=== PATIENT | male | born 1995 | race Caucasian/White ===

== ENCOUNTER 2017-09-06 06:57 | Inpatient (IN) | payer BC, SELFPAY ==
[2017-09-06] VITALS (18 sets, daily range): BP systolic 122–153; BP diastolic 67–87; PULSE 50–91; RESP 16–20; TEMP 36.3–37.4; O2SAT 91–99; BMI 25.5; BMI 26.2
[2017-09-06] MEDS: Ondansetron 4 MG/2 ML Vial IV (07:31)
[2017-09-06] MEDS: 0.9% Normal Saline 1,000 ML 1000 ML IV (07:31)
--- NOTE | 2017-09-06 07:40 | ED.VISSUMM ---
- ER Visit Summary Date of Service: 09/06/17 Chief Complaint: Vomiting diarrhea History of Present Illness: The patient is a 22 M who states on Tuesday morning, while returning from a [email or web address] cruise, he developed abdominal pain in the epigastric region radiating to his back. The patient states he did a significant amount of alcoholic beverage ingestion while on the cruise. He developed diarrhea that resolved yesterday with the use of antidiarrheal medication. Beginning last night he had vomiting. He states that he has had pancreatitis in the past that was attributed to gallbladder disease. He denies any fevers. Denies any rashes. His significant other who is on the trip with him does not feel ill. Physical Examination: Afebrile vital signs are stable Gen: Well-nourished well-developed Head: Normocephalic atraumatic Eyes: Perrl EOMI ENT: TMs clear no rhinorrhea moist mucous membranes Neck: Supple no lymphadenopathy no JVD nontender CVS: Regular rate rhythm no murmurs normal S1-S2 Respiratory: No distress clear to auscultation bilaterally chest nontender Abdomen: Soft mild tenderness to palpation in the epigastric region nondistended normal bowel sounds no masses Back: Nontender Extremity: Nontender no edema Skin: Normal color no rash Neuro: alert orientated ?3 CN II-XII intact normal strength sensation reflexes gait cerebellar Psych: Normal affect normal mood Test Results: White count at 7.9 hemoglobin 14.5 with platelets of 178. Glucose of 136. Liver enzymes showed an ALT is 79 and lipase of 4432. CT the abdomen pelvis demonstrated acute pancreatitis with significant inflammatory changes. See radiologist's formal reading for details. Emergency Department Course and Treatment: Patient received IV fluids Zofran and morphine. Patient is improved. Our plan will be admission into the hospital. Impression: 1. Acute pancreatitis This note was generated with [employer] dictation software. It may contain incorrect words, spelling, and punctuation that were not noted in review of the chart prior to signing ED Disposition - Plan for ED Patient: Chief Complaint: Nausea/Vomiting/Diarrhea Referrals: Care Physician,No Primary [Primary Care Provider] -
--- NOTE | 2017-09-06 07:46 | ED.DCSUM_ITS ---
- ER Visit Summary Date of Service: 09/06/17 Chief Complaint: Vomiting diarrhea History of Present Illness: The patient is a 22 M who states on Tuesday morning, while returning from a [employer] cruise, he developed abdominal pain in the epigastric region radiating to his back. The patient states he did a significant amount of alcoholic beverage ingestion while on the cruise. He developed diarrhea that resolved yesterday with the use of antidiarrheal medication. Beginning last night he had vomiting. He states that he has had pancreatitis in the past that was attributed to gallbladder disease. He denies any fevers. Denies any rashes. His significant other who is on the trip with him does not feel ill. Physical Examination: Afebrile vital signs are stable Gen: Well-nourished well-developed Head: Normocephalic atraumatic Eyes: Perrl EOMI ENT: TMs clear no rhinorrhea moist mucous membranes Neck: Supple no lymphadenopathy no JVD nontender CVS: Regular rate rhythm no murmurs normal S1-S2 Respiratory: No distress clear to auscultation bilaterally chest nontender Abdomen: Soft mild tenderness to palpation in the epigastric region nondistended normal bowel sounds no masses Back: Nontender Extremity: Nontender no edema Skin: Normal color no rash Neuro: alert orientated ?3 CN II-XII intact normal strength sensation reflexes gait cerebellar Psych: Normal affect normal mood Test Results: White count at 7.9 hemoglobin 14.5 with platelets of 178. Glucose of 136. Liver enzymes showed an ALT is 79 and lipase of 4432. CT the abdomen pelvis demonstrated acute pancreatitis with significant inflammatory changes. See radiologist's formal reading for details. Emergency Department Course and Treatment: Patient received IV fluids Zofran and morphine. Patient is improved. Our plan will be admission into the hospital. Impression: 1. Acute pancreatitis This note was generated with [employer] dictation software. It may contain incorrect words, spelling, and punctuation that were not noted in review of the chart prior to signing ED Disposition - Plan for ED Patient: Chief Complaint: Nausea/Vomiting/Diarrhea Referrals: Care Physician,No Primary [Primary Care Provider] -
[2017-09-06 07:57] LABS: Absolute Lymphocyte Count 0.75 X10^3/ul (0.83-4.51); Absolute Neutrophil Count 6.4 X10^3/uL (2.0-7.7); Basophil# 0.01 X10^3/uL; Basophil% 0.1 % (0-1); Eosinophil# 0.04 X10^3/uL; Eosinophils% 0.5 % (0-5); Hematocrit 41.9 % (40-54); Hemoglobin 14.5 g/dl (13.0-16.5); Lymphocyte # 0.75 X10^3/ul (4.0); Lymphocyte % 9.5 % (19-41); Mean Corp Hgb Conc 34.6 g/gl (32-36); Mean Corpuscular Hgb 30.1 pg (27.0-32.0); Mean Corpuscular Volume 87.1 fL (80-94); Mean Platelet Vol. 10.8 fl (6.2-12.0); Monocyte# 0.73 X10^3/uL; Monocyte% 9.2 % (0-10); Neutrophil # 6.38 X10^3/uL (2.7-7.7); Neutrophil % 80.4 % (47-70); POSITIVE COUNT NO; POSITIVE DIFFERENTIAL NO; POSITIVE MORPHOLOGY NO; Platelet Count 178 K/mm3 (150-450); RBC Distribution Width CV 12.5 % (11.6-14.6); RBC Distribution Width SD 39.1 fl (35.1-43.9); Red Blood Count 4.81 M/mm3 (4.6-6.2); White Blood Count 7.9 K/mm3 (4.4-11.0)
[2017-09-06 08:08] LABS: ALB/GLOB Ratio 1.1 RATIO (0.9-2.4); AST(SGOT) 33 U/L (15-37); Alanine Aminotransfer ALT/SGPT 79 U/L (16-61); Albumin, Serum 3.9 g/dL (3.2-5.0); Alkaline Phosphatase 74 U/L (45-117); Anion Gap 9 (5-15); BUN 15 mg/dL (7-18); Calcium,Total 8.8 mg/dL (8.5-10.1); Chloride 105 mmol/L (98-107); EST Glomerular Filtration Rate 99 mL/min (>60); Est Glom Filt Rate - Afr Amer 119 mL/min (>60); Globulin 3.6 g/dL (2.2-4.2); Glucose 136 mg/dL (74-106); Lipase 4432 U/L (73-393); Potassium 3.7 mmol/L (3.5-5.1); Protein, Total 7.5 g/dL (6.4-8.2); Sodium Level 140 mmol/L (136-145)
--- NOTE | 2017-09-06 08:13 | CT_ITS ---
STUDY: CT ABDOMEN AND PELVIS WITH CONTRAST REASON FOR EXAM: Male, 22 years old. Epigastric pain with nausea and vomiting. History of pancreatitis. RADIATION DOSAGE (If Supplied By Facility): CTDIvol = ( 14.58 ) mGy, DLP = ( 988.4 ) mGycm TECHNIQUE: Transaxial images were obtained from the dome of the diaphragm to the symphysis pubis without oral contrast. 100 ml of Isovue 300 contrast was administered. Sagittal and coronal images were reconstructed. Individualized dose optimization techniques were used for this CT. COMPARISON: None. FINDINGS: Tiny left pleural effusion. The visualized portions of the heart are within normal limits. Normal liver. The patient is status post cholecystectomy. Normal spleen. Small amount of perisplenic fluid. There is diffuse enlargement of the pancreas with liliane-pancreatic edema suggesting acute pancreatitis. Small amount of fluid and inflammatory changes are seen in the peripancreatic region extending into the left anterior pararenal space and left paracolic gutter. Small amount of fluid is also seen in the anterior right pararenal space. Normal bilateral adrenal glands. Normal right kidney. Normal left kidney. There is a small hiatal hernia. Normal small intestine. There are scattered colonic diverticula consistent with diverticulosis. The appendix is visualized and appears normal. Normal abdominal aorta. Normal inferior vena cava. Normal retroperitoneum. Normal urinary bladder. Normal abdominal wall. Straightening of the normal lumbar lordosis. CT/Abdomen/Pelvis W IV Cont ONLY IMPRESSION: Findings in comparison with acute pancreatitis with peripancreatic inflammatory changes as well as bilateral perinephric stranding and inflammatory changes in the pararenal spaces bilaterally. Minimal left pleural effusion. Electronically Signed: Que Yoo MD at 8:58 EDT Tel [phone], Service support ,
[2017-09-06] MEDS: 0.9% Normal Saline 1,000 ML 999 ML IV (08:18)
[2017-09-06] MEDS: Morphine 4 MG/ML Syringe IV ×2 (08:19→09:22)
[2017-09-06 09:04] LABS: Lactic Acid 0.9 mmol/L (0.4-2.0)
[2017-09-06] MEDS: 0.9% Normal Saline 1,000 ML 200 ML IV ×3 (09:22→19:05)
[2017-09-06 09:35] LABS: Bacteria 0 SEEN /hpf (None Seen); Mucous, Urine 0 SEEN /hpf (<or=2+); Squamous Epithelial Cells - UA 0 SEEN /hpf (0-5); White Blood Cells 0 SEEN /hpf (0-5)
[2017-09-06 09:37] LABS: Color, Urine Yellow (Yellow); Glucose, Dipstick Normal (Normal); Ketone-Dipstick Negative (Negative); Leukocyte Esterase-Dipstick Negative /ul (Negative); Nitrite-Dipstick Negative (Negative); Occult Blood-Urine 10 /ul (Negative); Protein-Dipstick Negative (Negative); Urine Bilirubin Dipstick Negative (Negative); Urine Clarity Clear (Clear); Urine Urobilinogen Normal (Normal); Urine pH 6.5 (5.0 - 8.0)
[2017-09-06 09:51] LABS: Red Blood Cells-Urine 0-5 SEEN /hpf (0-5)
[2017-09-06 10:22] LABS: Cholesterol 163 mg/dL (200); High Density Lipoprotein 54 mg/dL; Triglycerides 111 mg/dL; Very Low Density Lipoprotein 22 mg/dL (5-40)
[2017-09-06 11:14] LABS: Hemoglobin A1c 5.7 % (4.2-6.3)
--- NOTE | 2017-09-06 13:13 | HP.PCM_ITS ---
Problem List (1) Acute pancreatitis Status: Acute (2) PUD (peptic ulcer disease) Status: Resolved History of Present Illness Date of Admission: 09/06/17 Chief Complaint: Abdominal pain, nausea The patient is a 22 year old M with a PMH of pancreatitis presumed to be secondary to cholelithiasis. He has had cholecystectomy. Recently he was on a cruise to the [facility] and drank rather heavily. He presented to the emergency department at [facility] on 09/06/2017 complaining of nausea/ vomiting/abdominal pain. He stated the pain was located in the upper abdomen and radiated to the left flank/back. He denied fever/chills/sweats. He had no hematemesis. He had been having loose bowel movements. Vital signs in the emergency department were temperature 97.6, pulse rate 87, blood pressure 153/82 , respiratory rate 18 and he was 97% saturated on room air. CBC was unremarkable. Electrolytes were within normal limits and the BUN was 15 with a creatinine of 1.0. Glucose was mildly increased at 136 but the hemoglobin A1c is 5.7. Lactic acid was 0.9. ALT was mildly increased at 79 but the remainder of the liver profile was within normal limits. Triglycerides were 111 and the LDL was 87 with an HDL of 54. Lipase was elevated at 4432. UA was negative. He was admitted to the hospital with a diagnosis of acute pancreatitis likely secondary to EtOH. Past Medical History Allergies No Known Allergies Allergy (Verified 09/06/17 06:57) Surgical History: cholecystectomy Lives: Spouse/ Significant Other Smoking Status: Never smoker Tobacco Use: Non-smoker Alcohol: Heavy - heavy recently while on vacation in the [facility] but, noramterrie is a social drinker only Drugs: None - *Family History Maternal History Items: No pertinent history Paternal History Items: No pertinent history Review of Systems Constitutional: Reports: Anorexia, Malaise. Denies: Chills, Fever, Weight Change Eyes: Denies: Blurred vision HEENT: Denies: Head Aches, Sinus Congestion, Sinus Drainage Cardiovascular: Denies: Chest Pain, Palpitations Respiratory: Denies: Cough, Shortness of breath at rest, Sputum production Gastrointestinal: Reports: Abdominal Pain, Diarrhea, Nausea, Vomiting. Denies: Hematemesis, Hematochezia Genitourinary: Denies: Dysuria Musculoskeletal: Denies: Joint Pain, Joint Tenderness Skin: Denies: Jaundice, Rash, Wounds Neurological: Denies: Numbness, Tingling, Focal weakness Psychiatric: Denies: Anxiety, Depression, Homicidal Ideations, Suicidal Ideations Endocrine: Denies: Change in Body Habitus Hematologic/ Lymphatic: Denies: Hx of blood clot VTE Information - Inpt Only VTE Present on Admission: No VTE Mechan Device Prophylaxis: None VTE Pharm Prophylaxis ordered?: No Patient Problems: Active and Suspected Problems Acute pancreatitis (Acute) - Physical Exam General: Alert, Oriented x3, Cooperative, - - pale and is restless, appears in pain HEENT: Atraumatic, PERRLA, EOMI, Normocephalic Oral: Dry Mucosa Neck: Supple, No JVD, Negative Carotid Bruits, No Nodes, Trachea Midline Lungs: Clear to auscultation, Normal air movement Cardiovascular: Regular rate, Regular Rhythm, Normal S1, Normal S2, No murmurs, No rub noted, No Gallop Abdomen: Soft, Hypoactive Bowel Sounds, Distended - mildy, Tender - in the epigastric and LUQ with guarding with palpation, no rebound Extremities: No edema, Capillary Refill Less than 3 Seconds Skin: No rashes, No breakdown Musculoskeletal: No Tenderness to Palpation of Joints or Extremities Lymphatic: No Cervical, Supraclavicular, or Inguinal Adenopathy Neurological: Cranial nerves II-XII grossly intact Psych/Mental Status: Normal Affect, Appropriate Vital Signs Temp Pulse Resp BP Pulse Ox 98.2 F 53 L 18 136/76 H 95 09/06/17 12:00 09/06/17 12:00 09/06/17 12:00 09/06/17 12:00 09/06/17 12:00 Oxygen Delivery Method Room Air Weight: 193 lb 5.526 oz Body Mass Index (BMI) 26.2 Laboratory Tests Past 24 Hrs 09/06/17 09:30 Urine Color Yellow Urine Clarity Clear Urine pH 6.5 Ur Specific [place] 1.010 Urine Protein Negative Urine Glucose (UA) Normal Urine Ketones Negative Urine Occult Blood 10 H Urine Nitrite Negative Urine Bilirubin Negative Urine Urobilinogen Normal Ur Leukocyte Esterase Negative Urine RBC 0-5 SEEN Urine WBC 0 SEEN Ur Squamous Epith Cells 0 SEEN Urine Bacteria 0 SEEN Urine Mucus 0 SEEN Assessment/Plan Active and Suspected Problems Acute pancreatitis (Acute) Impressions 1. acute pancreatitis likely due to ETOH 2. 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
[2017-09-07] VITALS (12 sets, daily range): BP systolic 104–128; BP diastolic 55–75; PULSE 75–94; RESP 16; TEMP 36.6–37.4; O2SAT 93–97
[2017-09-07] MEDS: 0.9% Normal Saline 1,000 ML 200 ML IV ×5 (00:30→22:00)
[2017-09-07 06:09] LABS: Absolute Lymphocyte Count 0.64 X10^3/ul (0.83-4.51); Basophil# 0.01 X10^3/uL; Basophil% 0.2 % (0-1); Eosinophil# 0.02 X10^3/uL; Eosinophils% 0.3 % (0-5); Hematocrit 39.3 % (40-54); Hemoglobin 13.2 g/dl (13.0-16.5); Lymphocyte # 0.64 X10^3/ul (4.0); Lymphocyte % 10.1 % (19-41); Mean Corp Hgb Conc 33.6 g/gl (32-36); Mean Corpuscular Hgb 29.9 pg (27.0-32.0); Mean Corpuscular Volume 89.1 fL (80-94); Mean Platelet Vol. 10.8 fl (6.2-12.0); Monocyte# 0.73 X10^3/uL; Monocyte% 11.5 % (0-10); Neutrophil # 4.95 X10^3/uL (2.7-7.7); Neutrophil % 77.7 % (47-70); Platelet Count 162 K/mm3 (150-450); RBC Distribution Width CV 12.8 % (11.6-14.6); RBC Distribution Width SD 40.9 fl (35.1-43.9); Red Blood Count 4.41 M/mm3 (4.6-6.2); White Blood Count 6.4 K/mm3 (4.4-11.0)
[2017-09-07 06:11] LABS: POSITIVE COUNT NO; POSITIVE DIFFERENTIAL NO; POSITIVE MORPHOLOGY NO
[2017-09-07 06:20] LABS: AST(SGOT) 46 U/L (15-37); Alanine Aminotransfer ALT/SGPT 96 U/L (16-61); Albumin, Serum 3.2 g/dL (3.2-5.0); Alkaline Phosphatase 67 U/L (45-117); Anion Gap 8 (5-15); BUN 6 mg/dL (7-18); Calcium,Total 8.4 mg/dL (8.5-10.1); Chloride 106 mmol/L (98-107); Creatinine, Serum 0.67 mg/dL (0.70-1.30); EST Glomerular Filtration Rate 156 mL/min (>60); Est Glom Filt Rate - Afr Amer 189 mL/min (>60); Estimated Creatinine Clearance 188.21 ml/min; Globulin 3.1 g/dL (2.2-4.2); Glucose 82 mg/dL (74-106); Magnesium 1.7 mg/dL (1.6-2.6); Phosphorus 2.7 mg/dL (2.5-4.9); Protein, Total 6.3 g/dL (6.4-8.2); Sodium Level 141 mmol/L (136-145)
--- NOTE | 2017-09-07 09:37 | CASEMGMT ---
See RN CM Assessment Link. DC PLAN: home, no needs identified @ this time. Suman HOFFMANN RN ACM
--- NOTE | 2017-09-07 12:36 | PCM.PROGNOTE ---
Patient Problems: Active and Suspected Problems Acute pancreatitis (Acute) Subjective: All events of the past 24 hours of been reviewed. Has been afebrile since admission and vital signs are stable. Socks is 93-94% on room air. White blood cell count is once again normal at 6.4. Hemoglobin and platelets are within normal limits. Electrolytes are normal and the BUN is 6 with a creatinine of 0.67. Phosphorus and magnesium are normal. AST is 46 and the ALT is 96. He states his pain is adequately controlled. Denies nausea and has had no emesis. Has not required any antiemetics since admission. Shortness of breath. Movement. Objective: PHYSICAL EXAM: GENERAL: alert, oriented X 3, Cooperative, NAD ORAL: moist mucosa, no mucosal lesions NECK: No JVD, supple, trachea midline LUNGS: CTA, symmetric chest expansion HEART: RRR, Normal S1 and S2, no rub, no gallop ABDOMEN: soft, ND, decreased BS present, he is less tender in the epigastric area but still winces with palpation of the LUQ, no rebound, no masses EXTREMITIES: no edema, no cyanosis, no calf tenderness SKIN: No rashes, no breakdown NEUROLOGIC: no focal neurologic deficits PSYCH: appropriate, normal affect, pleasant - Physical Exam Vital Signs Temp Pulse Resp BP Pulse Ox 98.6 F 81 16 104/64 93 09/07/17 11:35 09/07/17 11:35 09/07/17 11:36 09/07/17 11:35 09/07/17 11:36 Oxygen Flow Rate (L/min) 2 Oxygen Delivery Method Room Air Weight: 193 lb 5.526 oz Body Mass Index (BMI) 26.2 Intake and Output for Last 24 Hours 09/05/17 09/06/17 09/07/17 23:59 23:59 23:59 Intake Total 1345 / 1345 3314 / 3314 Balance 1345 / 1345 3314 / 3314 Laboratory Tests Past 24 Hrs 09/07/17 09/07/17 09/07/17 05:35 05:35 05:35 WBC 6.4 RBC 4.41 L Hgb 13.2 Hct 39.3 L MCV 89.1 MCH 29.9 MCHC 33.6 RDW 12.8 RDW Differential 40.9 Plt Count 162 MPV 10.8 Immature Gran % (Auto) 0.200 Neut % (Auto) 77.7 H Lymph % (Auto) 10.1 L [place] % (Auto) 11.5 H Eos % (Auto) 0.3 Baso % (Auto) 0.2 Absolute Neuts (auto) 5.0 Absolute Lymphs (auto) 0.64 L Total Counted Not Reportable Sodium 141 Potassium 4.0 Chloride 106 Carbon Dioxide 27.0 Anion Gap 8 BUN 6 L Creatinine 0.67 L Estim Creat Clear Calc 188.21 Est GFR (MDRD) Af Amer 189 Est GFR (MDRD) Non-Af 156 BUN/Creatinine Ratio 9.0 L Glucose 82 Calcium 8.4 L Phosphorus 2.7 Magnesium 1.7 Total Bilirubin 1.00 AST 46 H ALT 96 H Alkaline Phosphatase 67 Total Protein 6.3 L Albumin 3.2 Globulin 3.1 Albumin/Globulin Ratio 1.0 Lipase Pending Medical Necessity - Tobacco Use Smoking Status: Never smoker Tobacco Use: Non-smoker Assessment/Plan Active and Suspected Problems Acute pancreatitis (Acute) Impressions 1. acute pancreatitis likely due to ETOH 2. 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 Code Visit Inpatient E&M: 76043 Subs Hosp L2
--- NOTE | 2017-09-07 12:44 | PN_ITS ---
Patient Problems: Active and Suspected Problems Acute pancreatitis (Acute) Subjective: All events of the past 24 hours of been reviewed. Has been afebrile since admission and vital signs are stable. Socks is 93-94% on room air. White blood cell count is once again normal at 6.4. Hemoglobin and platelets are within normal limits. Electrolytes are normal and the BUN is 6 with a creatinine of 0.67. Phosphorus and magnesium are normal. AST is 46 and the ALT is 96. He states his pain is adequately controlled. Denies nausea and has had no emesis. Has not required any antiemetics since admission. Shortness of breath. Movement. Objective: PHYSICAL EXAM: GENERAL: alert, oriented X 3, Cooperative, NAD ORAL: moist mucosa, no mucosal lesions NECK: No JVD, supple, trachea midline LUNGS: CTA, symmetric chest expansion HEART: RRR, Normal S1 and S2, no rub, no gallop ABDOMEN: soft, ND, decreased BS present, he is less tender in the epigastric area but still winces with palpation of the LUQ, no rebound, no masses EXTREMITIES: no edema, no cyanosis, no calf tenderness SKIN: No rashes, no breakdown NEUROLOGIC: no focal neurologic deficits PSYCH: appropriate, normal affect, pleasant - Physical Exam Vital Signs Temp Pulse Resp BP Pulse Ox 98.6 F 81 16 104/64 93 09/07/17 11:35 09/07/17 11:35 09/07/17 11:36 09/07/17 11:35 09/07/17 11:36 Oxygen Flow Rate (L/min) 2 Oxygen Delivery Method Room Air Weight: 193 lb 5.526 oz Body Mass Index (BMI) 26.2 Intake and Output for Last 24 Hours 09/05/17 09/06/17 09/07/17 23:59 23:59 23:59 Intake Total 1345 / 1345 3314 / 3314 Balance 1345 / 1345 3314 / 3314 Laboratory Tests Past 24 Hrs 09/07/17 09/07/17 09/07/17 05:35 05:35 05:35 WBC 6.4 RBC 4.41 L Hgb 13.2 Hct 39.3 L MCV 89.1 MCH 29.9 MCHC 33.6 RDW 12.8 RDW Differential 40.9 Plt Count 162 MPV 10.8 Immature Gran % (Auto) 0.200 Neut % (Auto) 77.7 H Lymph % (Auto) 10.1 L [place] % (Auto) 11.5 H Eos % (Auto) 0.3 Baso % (Auto) 0.2 Absolute Neuts (auto) 5.0 Absolute Lymphs (auto) 0.64 L Total Counted Not Reportable Sodium 141 Potassium 4.0 Chloride 106 Carbon Dioxide 27.0 Anion Gap 8 BUN 6 L Creatinine 0.67 L Estim Creat Clear Calc 188.21 Est GFR (MDRD) Af Amer 189 Est GFR (MDRD) Non-Af 156 BUN/Creatinine Ratio 9.0 L Glucose 82 Calcium 8.4 L Phosphorus 2.7 Magnesium 1.7 Total Bilirubin 1.00 AST 46 H ALT 96 H Alkaline Phosphatase 67 Total Protein 6.3 L Albumin 3.2 Globulin 3.1 Albumin/Globulin Ratio 1.0 Lipase Pending Medical Necessity - Tobacco Use Smoking Status: Never smoker Tobacco Use: Non-smoker Assessment/Plan Active and Suspected Problems Acute pancreatitis (Acute) Impressions 1. acute pancreatitis likely due to ETOH 2. 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 Code Visit Inpatient E&M: 55728 Subs Hosp L2
[2017-09-07 12:58] LABS: Lipase 1664 U/L (73-393)
[2017-09-08] VITALS (8 sets, daily range): BP systolic 111–141; BP diastolic 64–80; PULSE 51–93; RESP 14–16; TEMP 36.6–37.2; O2SAT 94–98
[2017-09-08] MEDS: 0.9% Normal Saline 1,000 ML 200 ML IV ×2 (01:45→06:14)
[2017-09-08 06:33] LABS: Lipase 566 U/L (73-393)
--- NOTE | 2017-09-08 07:00 | PCM.PROGNOTE ---
Patient Problems: Active and Suspected Problems Acute pancreatitis (Acute) Subjective: Afebrile, vital signs stable. 95% saturation on room air. Lipase is down to 566 today. He has been tolerating sips and chips. He actually had 500 cc of oral intake last night. I have not seen him out of bed yet this admission He is c/o back pain but, denies abdominal pain and also denies nausea. He is requesting an increase in his diet. Objective: PHYSICAL EXAM: GENERAL: alert, oriented X 3, Cooperative, NAD, lying in bed ORAL: moist mucosa, no mucosal lesions NECK: No JVD, supple, trachea midline LUNGS: CTA, symmetric chest expansion HEART: RRR, Normal S1 and S2, no rub, no gallop ABDOMEN: soft, ND, better BS today, no abdominal pain with palpation today, no rebound, no masses EXTREMITIES: no edema, no cyanosis, no calf tenderness SKIN: No rashes, no breakdown NEUROLOGIC: no focal neurologic deficits PSYCH: appropriate, normal affect, pleasant - Physical Exam Vital Signs Temp Pulse Resp BP Pulse Ox 98.2 F 76 16 111/70 95 09/08/17 06:00 09/08/17 06:00 09/08/17 06:00 09/08/17 06:00 09/08/17 06:00 Oxygen Flow Rate (L/min) 2 Oxygen Delivery Method Room Air Weight: 193 lb 5.526 oz Body Mass Index (BMI) 26.2 Intake and Output for Last 24 Hours 09/06/17 09/07/17 09/08/17 23:59 23:59 23:59 Intake Total 1345 / 1345 4769 / 4769 3047 / 3047 Balance 1345 / 1345 4769 / 4769 3047 / 3047 Laboratory Tests Past 24 Hrs 09/07/17 09/08/17 05:35 05:40 Lipase 1664 H 566 H Medical Necessity - Tobacco Use Smoking Status: Never smoker Tobacco Use: Non-smoker Assessment/Plan Active and Suspected Problems Acute pancreatitis (Acute) Impressions 1. acute pancreatitis likely due to ETOH 2. 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 Encouraged him to get out of bed and ambulate and get up to the chair Code Visit Inpatient E&M: [id number] Subs Hosp L2
[2017-09-08] MEDS: Magnesium Hydroxide 30 ML UDC PO (13:47)
[2017-09-08] MEDS: HYDROcodone Bitartrate/Apap 5/325 Tablet PO ×3 (13:47→22:02)
[2017-09-09] MEDS: HYDROcodone Bitartrate/Apap 5/325 Tablet PO ×3 (02:07→12:44)
[2017-09-09 02:10] VITALS: BP 135/77; PULSE 52; RESP 16; TEMP 36.6; O2SAT 96
[2017-09-09 06:04] LABS: Absolute Lymphocyte Count 0.94 X10^3/ul (0.83-4.51); Absolute Neutrophil Count 3.3 X10^3/uL (2.0-7.7); Basophil# 0.02 X10^3/uL; Basophil% 0.4 % (0-1); Eosinophil# 0.06 X10^3/uL; Eosinophils% 1.2 % (0-5); Hematocrit 38.5 % (40-54); Hemoglobin 13.2 g/dl (13.0-16.5); Lymphocyte # 0.94 X10^3/ul (4.0); Lymphocyte % 19.2 % (19-41); Mean Corp Hgb Conc 34.3 g/gl (32-36); Mean Corpuscular Hgb 29.7 pg (27.0-32.0); Mean Corpuscular Volume 86.5 fL (80-94); Mean Platelet Vol. 10.4 fl (6.2-12.0); Monocyte# 0.58 X10^3/uL; Monocyte% 11.8 % (0-10); Neutrophil % 67.4 % (47-70); Platelet Count 208 K/mm3 (150-450); RBC Distribution Width CV 12.2 % (11.6-14.6); RBC Distribution Width SD 37.9 fl (35.1-43.9); Red Blood Count 4.45 M/mm3 (4.6-6.2); White Blood Count 4.9 K/mm3 (4.4-11.0)
[2017-09-09 06:11] LABS: POSITIVE COUNT NO; POSITIVE DIFFERENTIAL NO; POSITIVE MORPHOLOGY NO
[2017-09-09 06:18] LABS: ALB/GLOB Ratio 0.9 RATIO (0.9-2.4); AST(SGOT) 21 U/L (15-37); Alanine Aminotransfer ALT/SGPT 58 U/L (16-61); Albumin, Serum 3.5 g/dL (3.2-5.0); Alkaline Phosphatase 67 U/L (45-117); Anion Gap 5 (5-15); BUN 6 mg/dL (7-18); BUN/Creat Ratio 8.6 RATIO (10-20); Calcium,Total 9.1 mg/dL (8.5-10.1); Chloride 100 mmol/L (98-107); EST Glomerular Filtration Rate 148 mL/min (>60); Est Glom Filt Rate - Afr Amer 180 mL/min (>60); Estimated Creatinine Clearance 180.14 ml/min; Globulin 4.1 g/dL (2.2-4.2); Glucose 98 mg/dL (74-106); Lipase 246 U/L (73-393); Potassium 3.7 mmol/L (3.5-5.1); Protein, Total 7.6 g/dL (6.4-8.2); Sodium Level 136 mmol/L (136-145)
[2017-09-09 08:33] VITALS: BP 142/80; PULSE 88; RESP 18; TEMP 36.9; O2SAT 95
--- NOTE | 2017-09-09 12:15 | CASEMGMT ---
RN CM NOTE: discussed dc plan of home to pt. His PCP is out of town. [facility]ure for [facility] given to pt if he needs to see physician on dc. No further questions. Suman ARREDONDO RN ACM
[2017-09-09 12:40] VITALS: BP 142/91; PULSE 50; RESP 18; TEMP 37.1; O2SAT 99
--- NOTE | 2017-09-09 13:32 | PCM.DC ---
- Discharge Diagnoses Current Active Problems: Current Active and Chronic Problems Acute pancreatitis (Acute) You will use the following diet at home:: Other - low fat, soft, no caffeine......advance to low fat as tolerated Your food should be the consistency of: Regular Your liquids should be the consistency of: Regular/Thin Discharge Activity: Return to Normal Activity Call your doctor if you observe: Fever of 101 or Higher, Inability to urinate, Inability to have a bowel movement, Shortness of breath, Dizziness, Fainting spells, Chest pain, Uncontrolled pain, - - intractable nausea and vomiting Instructions: Understanding Pancreatitis Additional Instructions: No alcohol for at least 2 weeks. Sometimes when you have had pancreatitis in the past you will get recurrent episodes with even small amounts of ETOH. I would limit your alcohol intake to no more than 1 alcoholic beverage a day. If you get pancreatitis too many times you sometimes end up with chronic pancreatitis. When this happens you will have pain every day of your life and may even develop diabetes. You definitely do not want this. Gallstones and alcohol are the 2 most common causes of pancreatitis.....but, there are other causes. If you get pancreatitis again and you have not been drinking you should see a outside salesman. Allergies/Adverse Reactions: Allergies No Known Allergies Allergy (Verified 09/06/17 06:57) Medications to take at Discharge Hydrocodone Bitart/Apap 5-325 [[place] 5/325] 1 - 2 tab PO Q4H PRN PRN 7 Days #48 tab 09/09/17 Ondansetron [Zofran Odt] 4 mg PO Q6H PRN PRN #10 tab.rapdis 09/09/17 The following prescriptions were given: Hydrocodone Bitart/Apap 5-325 [[place] 5/325] 1 - 2 tab PO Q4H PRN PRN 7 Days #48 tab PRN Reason: Severe Pain (6-10) Ondansetron [Zofran Odt] 4 mg PO Q6H PRN PRN #10 tab.rapdis PRN Reason: Nausea/Vomiting Primary Care Physician: Care Physician,No Primary [NON-STAFF] - Please follow up with your Primary Care Physician in: 1-2 weeks Proposed Discharge Date: 09/09/17
--- NOTE | 2017-09-09 13:42 | DCINST_ITS ---
- Discharge Diagnoses Current Active Problems: Current Active and Chronic Problems Acute pancreatitis (Acute) You will use the following diet at home:: Other - low fat, soft, no caffeine......advance to low fat as tolerated Your food should be the consistency of: Regular Your liquids should be the consistency of: Regular/Thin Discharge Activity: Return to Normal Activity Call your doctor if you observe: Fever of 101 or Higher, Inability to urinate, Inability to have a bowel movement, Shortness of breath, Dizziness, Fainting spells, Chest pain, Uncontrolled pain, - - intractable nausea and vomiting Instructions: Understanding Pancreatitis Additional Instructions: No alcohol for at least 2 weeks. Sometimes when you have had pancreatitis in the past you will get recurrent episodes with even small amounts of ETOH. I would limit your alcohol intake to no more than 1 alcoholic beverage a day. If you get pancreatitis too many times you sometimes end up with chronic pancreatitis. When this happens you will have pain every day of your life and may even develop diabetes. You definitely do not want this. Gallstones and alcohol are the 2 most common causes of pancreatitis.....but, there are other causes. If you get pancreatitis again and you have not been drinking you should see a slurry plant operator. Allergies/Adverse Reactions: Allergies No Known Allergies Allergy (Verified 09/06/17 06:57) Medications to take at Discharge Hydrocodone Bitart/Apap 5-325 [[place] 5/325] 1 - 2 tab PO Q4H PRN PRN 7 Days #48 tab 09/09/17 Ondansetron [Zofran Odt] 4 mg PO Q6H PRN PRN #10 tab.rapdis 09/09/17 The following prescriptions were given: Hydrocodone Bitart/Apap 5-325 [[place] 5/325] 1 - 2 tab PO Q4H PRN PRN 7 Days #48 tab PRN Reason: Severe Pain (6-10) Ondansetron [Zofran Odt] 4 mg PO Q6H PRN PRN #10 tab.rapdis PRN Reason: Nausea/Vomiting Primary Care Physician: Care Physician,No Primary [NON-STAFF] - Please follow up with your Primary Care Physician in: 1-2 weeks Proposed Discharge Date: 09/09/17
--- NOTE | 2017-09-09 13:42 | PCM.DC.SUM ---
Discharge Date and Diagnosis - Problem List Patient Problems: Active and Suspected Problems Hyperglycemia (Acute) Abnormal LFTs (Acute) Acute pancreatitis (Acute) Date of Admission: 09/06/17 Date of Discharge: 09/09/17 - Primary Discharge Diagnosis Active and Suspected Problems Acute pancreatitis (Acute) - secondary to heavy alcohol use Hyperglycemia (Acute) with a normal HGBA1C Abnormal LFTs (Acute) - resolved - Secondary Discharge Diagnosis Chronic Problems History of cholecystectomy (Chronic) Hospital Course and Treatment Imaging Results: Clinical Impression(s) from Imaging Studies Abdomen/Pelvis CT 09/06/17 08:13 IMPRESSION: Findings in comparison with acute pancreatitis with peripancreatic inflammatory changes as well as bilateral perinephric stranding and inflammatory changes in the pararenal spaces bilaterally. Minimal left pleural effusion. Electronically Signed: Que Yoo MD at 8:58 EDT Tel [phone], Service support , Laboratory Results - last 24 hr 09/09/17 09/09/17 05:35 05:35 WBC 4.9 RBC 4.45 L Hgb 13.2 Hct 38.5 L MCV 86.5 MCH 29.7 MCHC 34.3 RDW 12.2 RDW Differential 37.9 Plt Count 208 MPV 10.4 Immature Gran % (Auto) 0.000 Neut % (Auto) 67.4 Lymph % (Auto) 19.2 [place] % (Auto) 11.8 H Eos % (Auto) 1.2 Baso % (Auto) 0.4 Absolute Neuts (auto) 3.3 Absolute Lymphs (auto) 0.94 Total Counted Not Reportable Sodium 136 Potassium 3.7 Chloride 100 Carbon Dioxide 31.0 Anion Gap 5 BUN 6 L Creatinine 0.70 Estim Creat Clear Calc 180.14 Est GFR (MDRD) Af Amer 180 Est GFR (MDRD) Non-Af 148 BUN/Creatinine Ratio 8.6 L Glucose 98 Calcium 9.1 Total Bilirubin 0.60 AST 21 ALT 58 Alkaline Phosphatase 67 Total Protein 7.6 Albumin 3.5 Globulin 4.1 Albumin/Globulin Ratio 0.9 Lipase 246 none Operations: None Procedures: None Summary of Care Provided: The patient is a 22 year old M with a PMH of pancreatitis presumed to be secondary to cholelithiasis. He has had cholecystectomy after 2 episodes of pancreatitis in the past. Recently he was on a cruise to the [facility] and drank rather heavily. he presented to the emergency department at [facility] on 09/06/2017 complaining of nausea/ vomiting/abdominal pain. He stated the pain was located in the upper abdomen and radiated to the left flank/back. He denied fever/chills/sweats. He had no hematemesis. He had been having loose bowel movements. Vital signs in the emergency department were temperature 97.6, pulse rate 87, blood pressure 153/82, respiratory rate 18 and he was 97% saturated on room air. CBC was unremarkable. Electrolytes were within normal limits and the BUN was 15 with a creatinine of 1.0. Glucose was mildly increased at 136 but the hemoglobin A1c is 5.7. Lactic acid was 0.9. ALT was mildly increased at 79 but the remainder of the liver profile was within normal limits. Triglycerides were 111 and the LDL was 87 with an HDL of 54. Lipase was elevated at 4432. UA was negative. He was admitted to the hospital with a diagnosis of acute pancreatitis likely secondary to EtOH. He was ordered to be NPO and a MS PANTOGRAPH OPERATOR was started for pain control. IV fluids were started and serial lipases were obtained. The Lipase trended down and the diet was advanced. The PANTOGRAPH OPERATOR was discontinued on 09/08 and his pain has been adequately controlled with Vicodin. On 09/10/27 he was tolerating a low fat, soft diet without N/V/abdominal pain. Pain was adequately controlled with Vicodin and his only complaint was back pain which I feel is likely musculoskeletal but, if it persist when he is back in his own bed or if it gets worse I would repeat a CT of the abddomen to make sure he is not developing a pseudocyst or abscess. The lipase on the date of discharge was 246 which is normal. White blood cell count on the date of discharge was 4.9 and the hemoglobin was stable at 13.2. He was afebrile for the duration of his hospital stay. BMP was unremarkable on the date of discharge and the mildly increased transaminases are now normal. Was discharged home with a prescription for Vicodin No. 48 and instructed to take 1-2 every 4 hours as needed for pain. He was also given a prescription for Zofran ODT 4 mg and instructed to use 1 every 6 hours as needed for nausea. He will follow-up with a primary care physician in the next 1-2 weeks. GENERAL: alert, oriented X 3, Cooperative, NAD, lying in bed ORAL: moist mucosa, no mucosal lesions NECK: No JVD, supple, trachea midline LUNGS: CTA, symmetric chest expansion HEART: RRR, Normal S1 and S2, no rub, no gallop ABDOMEN: soft, ND, better BS today, no abdominal pain with palpation today, no rebound, no masses EXTREMITIES: no edema, no cyanosis, no calf tenderness SKIN: No rashes, no breakdown NEUROLOGIC: no focal neurologic deficits PSYCH: appropriate, normal affect, pleasant This note was generated with [employer] dictation software. It may contain incorrect words, spelling, and punctuation that were not noted in checking the note before signing. Discharge Activity: Return to Normal Activity Call your doctor if you observe: Fever of 101 or Higher, Inability to urinate, Inability to have a bowel movement, Shortness of breath, Dizziness, Fainting spells, Chest pain, Uncontrolled pain, - - intractable nausea and vomiting Home Medications: Medications to take at Discharge Hydrocodone Bitart/Apap 5-325 [[place] 5/325] 1 - 2 tab PO Q4H PRN PRN 7 Days #48 tab 09/09/17 Ondansetron [Zofran Odt] 4 mg PO Q6H PRN PRN #10 tab.rapdis 09/09/17 Following Prescrptions Were Given to Patient: Hydrocodone Bitart/Apap 5-325 [[place] 5/325] 1 - 2 tab PO Q4H PRN PRN 7 Days #48 tab PRN Reason: Severe Pain (-01/25) Ondansetron [Zofran Odt] 4 mg PO Q6H PRN PRN #10 tab.rapdis PRN Reason: Nausea/Vomiting Primary Care Physician: Care Physician,No Primary [NON-STAFF] - Please follow up with your Primary Care Physician in: 1-2 weeks Patient Instructions: Understanding Pancreatitis Disposition: Home Minutes spent on discharge:: 30 Patient Condition:: Good Medical Necessity - Tobacco Use Smoking Status: Never smoker Tobacco Use: Non-smoker Meaningful Use Info Meaningful Use Diagnoses (Choose all that apply): None applicable Code Visit Inpatient E&M: 48602 Disch Hosp
--- NOTE | 2017-09-09 13:53 | DS.PCM_ITS ---
Discharge Date and Diagnosis - Problem List Patient Problems: Active and Suspected Problems Hyperglycemia (Acute) Abnormal LFTs (Acute) Acute pancreatitis (Acute) Date of Admission: 09/06/17 Date of Discharge: 09/09/17 - Primary Discharge Diagnosis Active and Suspected Problems Acute pancreatitis (Acute) - secondary to heavy alcohol use Hyperglycemia (Acute) with a normal HGBA1C Abnormal LFTs (Acute) - resolved - Secondary Discharge Diagnosis Chronic Problems History of cholecystectomy (Chronic) Hospital Course and Treatment Imaging Results: Clinical Impression(s) from Imaging Studies Abdomen/Pelvis CT 09/06/17 08:13 IMPRESSION: Findings in comparison with acute pancreatitis with peripancreatic inflammatory changes as well as bilateral perinephric stranding and inflammatory changes in the pararenal spaces bilaterally. Minimal left pleural effusion. Electronically Signed: Que Yoo MD at 8:58 EDT Tel [phone], Service support , Laboratory Results - last 24 hr 09/09/17 09/09/17 05:35 05:35 WBC 4.9 RBC 4.45 L Hgb 13.2 Hct 38.5 L MCV 86.5 MCH 29.7 MCHC 34.3 RDW 12.2 RDW Differential 37.9 Plt Count 208 MPV 10.4 Immature Gran % (Auto) 0.000 Neut % (Auto) 67.4 Lymph % (Auto) 19.2 [place] % (Auto) 11.8 H Eos % (Auto) 1.2 Baso % (Auto) 0.4 Absolute Neuts (auto) 3.3 Absolute Lymphs (auto) 0.94 Total Counted Not Reportable Sodium 136 Potassium 3.7 Chloride 100 Carbon Dioxide 31.0 Anion Gap 5 BUN 6 L Creatinine 0.70 Estim Creat Clear Calc 180.14 Est GFR (MDRD) Af Amer 180 Est GFR (MDRD) Non-Af 148 BUN/Creatinine Ratio 8.6 L Glucose 98 Calcium 9.1 Total Bilirubin 0.60 AST 21 ALT 58 Alkaline Phosphatase 67 Total Protein 7.6 Albumin 3.5 Globulin 4.1 Albumin/Globulin Ratio 0.9 Lipase 246 none Operations: None Procedures: None Summary of Care Provided: The patient is a 22 year old M with a PMH of pancreatitis presumed to be secondary to cholelithiasis. He has had cholecystectomy after 2 episodes of pancreatitis in the past. Recently he was on a cruise to the [facility] and drank rather heavily. he presented to the emergency department at [facility] on 09/06/2017 complaining of nausea/ vomiting/abdominal pain. He stated the pain was located in the upper abdomen and radiated to the left flank/back. He denied fever/chills/sweats. He had no hematemesis. He had been having loose bowel movements. Vital signs in the emergency department were temperature 97.6, pulse rate 87, blood pressure 153/82, respiratory rate 18 and he was 97% saturated on room air. CBC was unremarkable. Electrolytes were within normal limits and the BUN was 15 with a creatinine of 1.0. Glucose was mildly increased at 136 but the hemoglobin A1c is 5.7. Lactic acid was 0.9. ALT was mildly increased at 79 but the remainder of the liver profile was within normal limits. Triglycerides were 111 and the LDL was 87 with an HDL of 54. Lipase was elevated at 4432. UA was negative. He was admitted to the hospital with a diagnosis of acute pancreatitis likely secondary to EtOH. He was ordered to be NPO and a MS SAP ABAP PROGRAMMER was started for pain control. IV fluids were started and serial lipases were obtained. The Lipase trended down and the diet was advanced. The SAP ABAP PROGRAMMER was discontinued on 09/08 and his pain has been adequately controlled with Vicodin. On 09/10/27 he was tolerating a low fat, soft diet without N/V/abdominal pain. Pain was adequately controlled with Vicodin and his only complaint was back pain which I feel is likely musculoskeletal but, if it persist when he is back in his own bed or if it gets worse I would repeat a CT of the abddomen to make sure he is not developing a pseudocyst or abscess. The lipase on the date of discharge was 246 which is normal. White blood cell count on the date of discharge was 4.9 and the hemoglobin was stable at 13.2. He was afebrile for the duration of his hospital stay. BMP was unremarkable on the date of discharge and the mildly increased transaminases are now normal. Was discharged home with a prescription for Vicodin No. 48 and instructed to take 1-2 every 4 hours as needed for pain. He was also given a prescription for Zofran ODT 4 mg and instructed to use 1 every 6 hours as needed for nausea. He will follow-up with a primary care physician in the next 1-2 weeks. GENERAL: alert, oriented X 3, Cooperative, NAD, lying in bed ORAL: moist mucosa, no mucosal lesions NECK: No JVD, supple, trachea midline LUNGS: CTA, symmetric chest expansion HEART: RRR, Normal S1 and S2, no rub, no gallop ABDOMEN: soft, ND, better BS today, no abdominal pain with palpation today, no rebound, no masses EXTREMITIES: no edema, no cyanosis, no calf tenderness SKIN: No rashes, no breakdown NEUROLOGIC: no focal neurologic deficits PSYCH: appropriate, normal affect, pleasant This note was generated with [employer]ondo dictation software. It may contain incorrect words, spelling, and punctuation that were not noted in checking the note before signing. Discharge Activity: Return to Normal Activity Call your doctor if you observe: Fever of 101 or Higher, Inability to urinate, Inability to have a bowel movement, Shortness of breath, Dizziness, Fainting spells, Chest pain, Uncontrolled pain, - - intractable nausea and vomiting Home Medications: Medications to take at Discharge Hydrocodone Bitart/Apap 5-325 [[place] 5/325] 1 - 2 tab PO Q4H PRN PRN 7 Days #48 tab 09/09/17 Ondansetron [Zofran Odt] 4 mg PO Q6H PRN PRN #10 tab.rapdis 09/09/17 Following Prescrptions Were Given to Patient: Hydrocodone Bitart/Apap 5-325 [[place] 5/325] 1 - 2 tab PO Q4H PRN PRN 7 Days #48 tab PRN Reason: Severe Pain (-01/25) Ondansetron [Zofran Odt] 4 mg PO Q6H PRN PRN #10 tab.rapdis PRN Reason: Nausea/Vomiting Primary Care Physician: Care Physician,No Primary [NON-STAFF] - Please follow up with your Primary Care Physician in: 1-2 weeks Patient Instructions: Understanding Pancreatitis Disposition: Home Minutes spent on discharge:: 30 Patient Condition:: Good Medical Necessity - Tobacco Use Smoking Status: Never smoker Tobacco Use: Non-smoker Meaningful Use Info Meaningful Use Diagnoses (Choose all that apply): None applicable Code Visit Inpatient E&M: 37291 Disch Hosp
[2017-09-09 14:00] VITALS: BP 142/91; PULSE 50; RESP 18; TEMP 37.1; O2SAT 99
== END 2017-09-09 14:00 | disposition home or self-care (01) | DRG 440 ==
LOC: ED 07:29 → MS2 09:33
PROVIDERS: Admitting Provider Internal Medicine; Emergency Provider Emergency Medicine; Visit Provider Internal Medicine
DX: K85.20 Alcohol induced acute pancreatitis without necrosis or infection (principal); R73.9 Hyperglycemia, unspecified; Z87.19 Personal history of other diseases of the digestive system; Z87.11 Personal history of peptic ulcer disease; Z90.49 Acquired absence of other specified parts of digestive tract
CPT/HCPCS: 36415; 74177; 80053; 80061; 81001; 83036; 83605; 83690; 83735; 84100; 85025; 94762; 97803; 99284; J7030; Q9967; A4216; J2270; J2405

== ENCOUNTER 2019-04-12 13:29 | Emergency (ER) | payer OTHER, SELFPAY ==
[2019-04-12 13:29] VITALS: BP 150/76; PULSE 90; RESP 16; TEMP 36.7; BMI 23.7
[2019-04-12 14:19] VITALS: RESP 16
--- NOTE | 2019-04-12 14:35 | ED.DCSUM_ITS ---
- ER Visit Summary Date of Service: 04/12/19 Chief Complaint: Back pain History of Present Illness: The patient is a 23 M history of pancreatitis and cholecystectomy. Patient states he was recently on a trip he was tubing in the water a fair amount. Is complaining of pain for the last 5 to 6 days of his r ight lower thoracic paraspinal soft tissue. He denies any bowel or bladder incontinence. No weakness. No radiation to his legs. No prior back history of back surgery. No fever. No numbness or weakness. Physical Examination: Young male no acute distress vital signs are stable afebrile. HEENT exam unremarkable neck nontender. Lungs clear to auscultation bilaterally. Heart regular rhythm no murmur. Abdomen soft nontender normal bowel sounds no peritoneal signs. Patient moving all 4 extremities. Neurovascular intact. Normal motor strength sensation both upper extremities. Normal motor strength, sensation and range of motion both lower extremities. No cauda equina. No saddle anesthesia. Negative straight leg raise bilaterally. Back exam his spine cervical, thoracic and lumbar spine are nontender. His lower thoracic spine and the paraspinal right side of it he has tenderness palpation consistent with soft tissue injury. There is no ecchymosis or brui sing. No redness or warmth. Neurologic exam normal. No cauda equina. No saddle anesthesia. No weakness or numbness. Test Results: Thoracic spine x-rays 2 views read by myself shows no acute abnormality. No fracture. I did go over x-rays with the patient. Emergency Department Course and Treatment: Discussed with patient diagnosis. He did want x-rays obtained. Treatment Plan: Motrin for pain. Hot shower warm bath. Massage. Follow-up if not improving. Disposition: Discharge Impression: Paraspinal thoracic muscular contusion and strain This note was generated with [employer] dictation software. It may contain incorrect words, spelling, and punctuation that were not noted in review of the chart prior to signing ED Disposition - Plan for ED Patient: Referrals: [facility] Doctor,Out of [NON-STAFF] -
--- NOTE | 2019-04-12 14:50 | RAD_ITS ---
STUDY: X-RAY - THORACIC SPINE REASON FOR EXAM: Male, 23 years old. RIGHT MID TO LOW BACK PAIN AFTER TUBING. DENIES OTHER INJURIES TECHNIQUE: 3 view(s) of the thoracic spine were obtained. COMPARISON: None. FINDINGS: Normal kyphosis of the thoracic spine. There is no substantial scoliosis. Normal thoracic vertebrae and endplates. Normal disc space heights. The soft tissue structures are unremarkable. RAD/Thoracic Spine 3 Views IMPRESSION: Normal x-ray examination of the thoracic spine. Electronically Signed: Reji Larson MD at 15:18 EST Tel , Service support ,
--- NOTE | 2019-04-12 15:13 | ED.DEP ---
ED Disposition - Plan for ED Patient: Disposition: Home or Assisted Living Instructions: BACK PAIN (Acute or Chronic) Referrals: Dean Stoner MD [STAFF PHYSICIAN] - 1 Week if not improving Additional Instructions: Ice to the area. Hot shower warm bath to relax the muscles. Massage. Motrin for pain and inflammation. Patient progressively improve if not follow-up for further evaluation.
[2019-04-12 15:17] VITALS: RESP 16
== END 2019-04-12 15:17 | disposition home or self-care (01) ==
PROVIDERS: Emergency Provider Emergency Medicine
DX: S29.012A Strain of muscle and tendon of back wall of thorax, initial encounter (principal); S30.0XXA Contusion of lower back and pelvis, initial encounter; X58.XXXA Exposure to other specified factors, initial encounter; Y93.16 Activity, rowing, canoeing, kayaking, rafting and tubing
CPT/HCPCS: 72072; 99282

== ENCOUNTER 2023-10-12 08:22 | Observation (INO) | payer OTHER, SELFPAY ==
[2023-10-12] VITALS (10 sets, daily range): BP systolic 118–135; BP diastolic 57–89; PULSE 75–114; RESP 18–28; TEMP 36.2–36.9; O2SAT 97–100; BMI 27.3; BMI 24.9
--- NOTE | 2023-10-12 08:46 | EDS_ITS ---
HPI History of Present Illness Chief Complaint: Abd Pain Informant: patient Onset/Context/Timing Onset: Today Context: Sudden Onset Timing: Continuous Quality: Tightness Location: Left shoulder, chest, abdomen, and arm Worsened by: Deep breathing Relieved by: Ice, heat Narrative Narrative: Patient presents with pain in his left shoulder, chest, and abdomen that began this morning. Patient states the pain started in his shoulder and then progressed into his chest and down his left arm. Patient states it then progressed into the left side of his abdomen. Patient describes it as a tightness. Patient states it is worse with deep breathing. Patient states he was using ice and heat which was helping. Patient denies any trauma or injury. Patient denies any paresthesias or weakness. Patient denies any diaphoresis. Patient denies any shortness of breath. [facility] Medical History (Updated 10/12/23 @ 12:[address] Michael Mehta DO) Acute pancreatitis Home Medications ?Medication ?Instructions ?Recorded ?Last Taken ?Type NK 10/12/23 Unknown History Allergy/AdvReac Type Severity Reaction Status Date / Time No Known Allergies Allergy Verified 09/06/17 06:57 Surgical History (Updated 10/12/23 @ 09:[address] Michael Mehta DO) History of cholecystectomy Social History Smoking Status: Never smoker ROS ROS ED Constitutional Constitutional ED: Denies chills or fever(s) Eyes Eyes: Denies blurry vision or change in vision ENT ENT ED: Denies rhinorrhea or sore throat Cardiovascular Cardiovascular: Reports chest pain; Denies palpitations Respiratory/Chest Respiratory/Chest: Denies cough or dyspnea Gastrointestinal Gastrointestinal: Reports abdominal pain; Denies nausea or vomiting Genitourinary Genitourinary ED: Denies dysuria or hematuria Musculoskeletal Musculoskeletal: Reports back pain; Denies neck pain Integumentary Denies abscess or rash Neurologic Neurologic: Reports paresthesias LUE; Denies headache(s) or weakness Allergic/Immunologic Allergic/Immunologic ED: Denies mouth swelling or urticaria EXAM Physical Exam Const Vital Signs: 10/12/23 08:22 10/12/23 10:22 Temperature 97.2 F L Temperature Source Temporal Pulse Rate 114 H 89 Respiratory Rate 22 H 28 H Blood Pressure 135/89 H 122/82 H Blood Pressure Mean 104 95 Pulse Ox 98 100 Oxygen Delivery Method Room Air Positive well nourished and well developed General Appearance ED: well developed and NAD HEENT Reports moist mucous membranes Neck supple and no JVD Chest Wall inspection of chest normal and palpation of chest normal Resp normal respiratory effort and clear to auscultation bilaterally Cardio regular rate and regular rhythm GI non-distended Palpation: soft and tender LLQ and LUQ; Negative for guarding or rebound tenderness present Extremity normal to inspection General Extremety ED: Negative for edema or tenderness General Extremity: Negative for edema Neuro oriented x3, CN's II-XII intact bilaterally and no sensory deficits noted Sensorium / Orientation: alert Motor Exam: strength 5/5 throughout Psych mental status grossly normal MDM MDM MDM Narrative Medical decision making narrative: Differential diagnosis includes cardiac dysrhythmia, cardiac ischemia, pneumonia, pneumothorax, pulmonary embolism, pancreatitis, gastritis, GERD, diverticulitis, ureteral calculus, pyelonephritis, neuropathy, and radi culopathy. EKG will be obtained to assess for cardiac dysrhythmia and cardiac ischemia. Chest x-ray will be obtained to assess for pneumonia and pneumothorax. CBC will be obtained to assess for leukocytosis and anemia. Basic metabolic profile will be obtained to assess for electrolyte abnormality and renal function. High-sensitivity troponin will be obtained to assess for cardiac ischemia. Lipase will be obtained to assess for pancreatitis. D-dimer will be obtained to assess for pulmonary embolism. COVID-19, influenza, and RSV PCR will be obtained to assess for viral illness. Lab Data Attestation: I reviewed the patient's lab results. Lab results narrative: CBC was reviewed and was within normal limits. PT was INR and PTT were reviewed and were within normal limits. Comprehensive metabolic profile was reviewed and was essentially within normal limits. High-sensitivity troponin was reviewed and was normal at less than 3. D-dimer was reviewed and was elevated at 2.91. Lipase was reviewed and was slightly elevated at 137. Urinalysis was reviewed. There is no evidence of urinary tract infection or hematuria. COVID-19 PCR was reviewed and was positive. Influenza A and influenza B PCR was reviewed and was negative. RSV PCR was reviewed and was negative. Labs: Laboratory Results - last 24 hr 10/12/23 10/12/23 08:47 09:35 WBC 6.7 RBC 5.21 Hgb 14.6 Hct 45.3 MCV 86.9 MCH 28.0 MCHC 32.2 RDW Std Deviation 39.8 RDW Coeff of [place] 12.6 Plt Count 248 MPV 10.5 Immature Gran % (Auto) 0.300 Neut % (Auto) 80.6 H Lymph % (Auto) 10.5 L [place] % (Auto) 7.8 Eos % (Auto) 0.5 Baso % (Auto) 0.3 Absolute Neuts (auto) 5.4 Absolute Lymphs (auto) 0.70 L Nucleated RBC % 0 PT 13.6 INR 1.0 APTT 24.8 D-Dimer Quant (PE/DVT) 2.91 H* Sodium 135 L Potassium 4.1 Chloride 103 Carbon Dioxide 27.0 Anion Gap 5 BUN 17 Creatinine 1.05 Estim Creat Clear Calc 100.43 Est GFR (MDRD) Af Amer 107 Est GFR (MDRD) Non-Af 89 BUN/Creatinine Ratio 16.2 Glucose 121 H Calcium 9.3 Total Bilirubin 0.70 AST 18 ALT 41 Alkaline Phosphatase 96 Troponin I High Sens < 3 L Total Protein 7.9 Albumin 4.0 Globulin 3.9 Albumin/Globulin Ratio 1.0 Lipase 137 H Urine Color Yellow Urine Clarity Clear Urine pH 6.5 Ur Specific [place] 1.015 Urine Protein 30 H Urine Glucose (UA) Normal Urine Ketones 5 H Urine Occult Blood 10 H Urine Nitrite Negative Urine Bilirubin Negative Urine Urobilinogen 1 H Ur Leukocyte Esterase 25 H Urine RBC 0-5 SEEN Urine WBC 0-5 SEEN Ur Squamous Epith Cells 0 SEEN Urine Bacteria 1+ Urine Mucus 2+ Radiography Chest X-Ray - ED: 2 View, Read by ED Physician, Read by Radiologist and No Acute Disease Diagnostic Testing: Clinical Impression(s) from Imaging Studies Abdomen CT 10/12/23 10:04 IMPRESSION: Findings in keeping with acute pancreatitis and large pseudocyst. Small amount of perihepatic fluid. Electronically Signed: Que Yoo MD at 11:04 EDT , Chest CTA 10/12/23 10:04 IMPRESSION: No evidence of pulmonary embolism. Mild bibasilar atelectasis and tiny left pleural effusion. 8.2 cm x 8.2 cm cystic mass in the left upper quadrant behind the greater curvature of the stomach and in the region of the body and tail the pancreas with increased surrounding inflammatory changes as described. Acute pancreatitis with pseudocyst formation should be ruled out. Electronically Signed: Que Yoo MD at 10:58 EDT , Chest X-Ray 10/12/23 10:15 IMPRESSION: Normal x-ray examination of the chest. Electronically Signed: Que Yoo MD at 10:50 EDT , PA and lateral chest x-ray was obtained. There are 2 views. On my independent interpretation, lung molina are clear. There is normal cardiac silhouette. Bony thorax is normal. There is no acute process noted. Radiologist also interpreted the x-ray and agrees. Because of the elevated D-dimer, CTA of the chest was obtained. There is no evidence of pulmonary embolism. There is mild basilar atelectasis and a tiny left pleural effusion. There is an 8.2 cm x 8.2 cm cystic mass in the left upper quadrant behind the greater curvature of the stomach in the region of the body and tail of the pancreas with surrounding inflammatory changes likely from pancreatitis and pseudocyst formation. This was interpreted by the radiologist and was also independently reviewed by myself. Because of this finding, CT scan of the abdomen was obtained. There is acute pancreatitis and large pseudocyst. There is small amount of perihepatic fluid. There is no other acute abnormality noted. This was interpreted by the radiologist was also independently reviewed by myself. EKG Initial EKG: Attestation: I personally reviewed and interpreted this EKG as follows: Interpretation: Sinus Rhythm (96), No Acute Injury Pattern and Non- Specific ST Changes Comments: EKG was obtained. On my independent interpretation, it showed a normal sinus rhythm with a rate of 96. MS interval, QRS interval, and QTc intervals were all normal. Harvest was normal. There are nonspecific ST-T wave changes. Prior EKG tracings: not available for review Prior: No Prior Treatment and Re-Evaluation :: Patient was given IV fluids and Toradol here. Patient was still having some pain on reevaluation. Patient was advised of the need for hospitalization. Case was discussed with the hospitalist. She will admit the patient to her service. Patient understood and was agreeable with the plan. All questions were answered. Discharge Plan Triage Chief Complaint: Abd Pain ED Provider: Michael Mehta Dx/Rx/DC Orders Clinical Impression: Acute pancreatitis, COVID-19 Prescriptions: No Action NK Primary Care Provider: Care Physician,No Primary Referrals: SHANON THOMAS [Other] Print Language: Senegalese Disposition Disposition: Acute Care [facility]
--- NOTE | 2023-10-12 09:15 | EKG12_ITS ---
Test Reason : Blood Pressure : / mmHG Vent. Rate : 096 BPM Atrial Rate : 096 BPM P-R Int : 146 ms QRS Dur : 086 ms QT Int : 344 ms P-R-T Axes : 067 068 064 degrees QTc Int : 434 ms Normal sinus rhythm Possible Left atrial enlargement Nonspecific ST abnormality Abnormal ECG Confirmed by Lan Ruvalcaba ([id number]), proposal editor THERESE SILVERMAN ([id number]) on 10/13/2023 11:17:58 AM Referred By: Confirmed By:Lan Ruvalcaba
--- NOTE | 2023-10-12 09:20 | ED.RN ---
NO OLD EKGS
[2023-10-12 09:23] LABS: Squamous Epithelial Cells - UA 0 SEEN /hpf (0-5)
[2023-10-12 09:27] LABS: Color, Urine Yellow (Yellow); Glucose, Dipstick Normal (Normal); Ketone-Dipstick 5 mg/dl (Negative); Leukocyte Esterase-Dipstick 25 /ul (Negative); Nitrite-Dipstick Negative (Negative); Occult Blood-Urine 10 /ul (Negative); Protein-Dipstick 30 mg/dl (Negative); Specific Gravity, Urine 1.015 (1.002-1.030); Urine Bilirubin Dipstick Negative (Negative); Urine Clarity Clear (Clear); Urine Urobilinogen 1 mg/dl (Normal); Urine pH 6.5 (5.0 - 8.0)
[2023-10-12 09:33] LABS: Mucous, Urine 2+ /hpf (<or=2+); Red Blood Cells-Urine 0-5 SEEN /hpf (0-5); White Blood Cells 0-5 SEEN /hpf (0-5)
[2023-10-12 09:34] LABS: Bacteria 1+ /hpf (None Seen)
[2023-10-12 09:43] LABS: Absolute Neutrophil Count 5.4 X10^3/uL (2.0-7.7); Basophil# 0.02 X10^3/uL; Basophil% 0.3 % (0-1); Eosinophil# 0.03 X10^3/uL; Eosinophils% 0.5 % (0-5); Hematocrit 45.3 % (40-54); Hemoglobin 14.6 g/dL (13.0-16.5); Lymphocyte % 10.5 % (19-41); Mean Corp Hgb Conc 32.2 g/dL (32-36); Mean Corpuscular Volume 86.9 fL (80-94); Mean Platelet Vol. 10.5 fl (6.2-12.0); Monocyte# 0.52 X10^3/uL; Monocyte% 7.8 % (0-10); NRBC Flagged by Analyzer 0 % (0-5); Neutrophil # 5.36 X10^3/uL (2.7-7.7); Neutrophil % 80.6 % (47-70); Platelet Count 248 K/mm3 (150-450); RBC Distribution Width CV 12.6 % (11.6-14.6); RBC Distribution Width SD 39.8 fl (35.1-43.9); Red Blood Count 5.21 M/mm3 (4.6-6.2); White Blood Count 6.7 K/mm3 (4.4-11.0)
[2023-10-12 09:50] LABS: Prothrombin Time (Protime)PT. 13.6 SECONDS (11.7-14.9)
[2023-10-12 09:51] LABS: Partial Thromboplast Time 24.8 Seconds (24.1-36.2)
[2023-10-12 10:02] LABS: AST(SGOT) 18 U/L (15-37); Alanine Aminotransfer ALT/SGPT 41 U/L (16-61); Alkaline Phosphatase 96 U/L (45-117); Anion Gap 5 (5-15); BUN 17 mg/dL (7-18); BUN/Creat Ratio 16.2 RATIO (10-20); Calcium,Total 9.3 mg/dL (8.5-10.1); Chloride 103 mmol/L (98-107); Creatinine, Serum 1.05 mg/dL (0.70-1.30); EST Glomerular Filtration Rate 89 mL/min (>60); Est Glom Filt Rate - Afr Amer 107 mL/min (>60); Estimated Creatinine Clearance 100.43 ml/min; Globulin 3.9 g/dL (2.2-4.2); Glucose 121 mg/dL (74-106); Lipase 137 U/L (13-75); Potassium 4.1 mmol/L (3.5-5.1); Protein, Total 7.9 g/dL (6.4-8.2); Sodium Level 135 mmol/L (136-145); Troponin-I HS < 3 pg/mL (3.0-78.0)
[2023-10-12 10:03] LABS: D-Dimer Quantitative (DVT/PE) 2.91 FEU/ug/m (0.27-0.49)
--- NOTE | 2023-10-12 10:04 | CT_ITS ---
STUDY: CT ABDOMEN WITH CONTRAST REASON FOR EXAM: Male, 28 years old. Abdomen pain RADIATION DOSAGE (If Supplied By Facility): CTDIvol = ( 13.30 ) mGy, DLP = ( 996.77 ) mGycm TECHNIQUE: Transaxial images were obtained post I.V. administration of IV 100mL Isovue-370, and oral contrast. Sagittal and coronal images were reconstructed. Individualized dose optimization techniques were used for this CT. COMPARISON: Comparison is made with prior study September 06, 2017. FINDINGS: Tiny left pleural effusion with mild bibasilar atelectasis. The visualized portions of the heart are within normal limits. Normal liver. Small amount of perihepatic fluid. The patient is status post cholecystectomy. Normal spleen. There is an 8.2 cm x 8.2 cm cystic mass in the left upper quadrant adjacent to the lesser curvature of the stomach in the region of the body and tail portions of the pancreas with surrounding inflammatory changes. Fluid is seen in the left pararenal space as well as left paracolic gutter. There is also evidence of a 2.68 cm x 1.9 cm cystic structure along the anterior lateral aspect of the dominant cystic mass. Normal bilateral adrenal glands. Normal right kidney. Normal left kidney. Normal visualized stomach. Normal small intestine. Normal colon. The appendix is visualized and appears normal. Normal abdominal aorta. Normal inferior vena cava. There is borderline retroperitoneal lymphadenopathy with enlarged nodes no greater than 10mm in the short axis diameter. Normal abdominal wall. Normal osseous structures. CT/Abdomen WITH IV Contrast IMPRESSION: Findings in keeping with acute pancreatitis and large pseudocyst. Small amount of perihepatic fluid. Electronically Signed: Que Yoo MD at 11:04 EDT ,
--- NOTE | 2023-10-12 10:04 | CT_ITS ---
STUDY: CTA CHEST REASON FOR EXAM: Male, 28 years old. Elevated D-dimer. Epigastric pain. Left arm pain. RADIATION DOSAGE (If Supplied By Facility): CTDIvol = ( 13.30 ) mGy, DLP = ( 996.77 ) mGycm TECHNIQUE: The examination was performed with the intravenous administration of IV 100mL Isovue-370. Post-processing of the angiographic images was performed, with multiplanar reformation and 3D reconstruction. Individualized dose optimization techniques were used for this CT. COMPARISON: None. FINDINGS: Normal enhancement of the main pulmonary artery and right and left pulmonary arteries. Normal enhancement of the bilateral peripheral pulmonary arteries. There is no demonstrated pulmonary embolism. Normal thoracic aorta and visualized great vessels. There is no demonstrated aortic dissection. Normal heart and pericardium. Normal mediastinum. Normal hilar regions. Normal visualized trachea and bronchi. The lungs are well expanded. Tiny left pleural effusion with mild basilar atelectasis. Normal pleura. Normal chest wall structures. Normal osseous structures. There is an 8.2 cm x 8.2 cm cystic mass in the left upper quadrant adjacent to the greater curvature of the stomach in the region of the tail the pancreas. Increased markings are seen in the surrounding peritoneal fat extending into the left pararenal space and left paracolic gutter. Small amount of the perihepatic fluid. CT/CTA Chest W/WO Contrast IMPRESSION: No evidence of pulmonary embolism. Mild bibasilar atelectasis and tiny left pleural effusion. 8.2 cm x 8.2 cm cystic mass in the left upper quadrant behind the greater curvature of the stomach and in the region of the body and tail the pancreas with increased surrounding inflammatory changes as described. Acute pancreatitis with pseudocyst formation should be ruled out. Electronically Signed: Que Yoo MD at 10:58 EDT ,
--- NOTE | 2023-10-12 10:15 | RAD_ITS ---
STUDY: X-RAY CHEST REASON FOR EXAM: Male, 28 years old. Left-sided chest and abdominal pain. TECHNIQUE: PA and lateral views of the chest. COMPARISON: None. FINDINGS: EKG electrodes are seen. The lungs are clear and expanded. There is no demonstrated pleural abnormality. Normal size heart. Normal mediastinum and toshia. Normal visualized pulmonary arteries. Normal visualized aortic arch and descending thoracic aorta. Normal visualized thoracic spine. Normal visualized ribs, clavicles, and shoulders. There is no demonstrated abnormality of the visualized soft tissue structures of the upper abdomen. RAD/Chest PA and Lateral IMPRESSION: Normal x-ray examination of the chest. Electronically Signed: Qeu Yoo MD at 10:50 EDT ,
[2023-10-12] MEDS: 0.9% Normal Saline (1000mL) 1,000 ML 1000 ML IV (10:31)
[2023-10-12] MEDS: Ketorolac 30 MG/ML Syringe IV ×3 (10:32→22:22)
--- NOTE | 2023-10-12 12:27 | PCM.HP.STD ---
HPI - General General Date of Admission: 10/12/23 Date of Service: 10/12/23 Chief Complaint: Left shoulder and epigastric pain HPI Narrative VIKASH PATEL, is a 28 M with history of pancreatitis 6 years ago who presented to [facility] ED with several hours of left shoulder pain that then radiated to his epigastric region and he just felt generally unwell prompting him to come to the ED. In the ED he was found to have a D-dimer of 2.91 and had a CTA which was negative so COVID test obtained and was positive. Given some of the pain radiating to the epigastric region CT abdomen was obtained and he had a 8.2 cm x 8.2 cm cystic mass in the left upper quadrant adjacent to the lesser curvature of the stomach in the region of the body and tail portions of the pancreas with surrounding inflammatory changes with a 2.68 cm x 1.9 cm cystic structure along the anterior lateral aspect of the dominant cystic mass as well as some small amount of perihepatic fluid. Lipase slightly elevated. Given patient's multiple problems and presentation hospitalist contacted for admission. On evaluation patient reported the pain in the left shoulder which initially he thought was a pulled muscle from golfing but when it went to his chest and down to his epigastric region any just felt generally unwell he decided to come to the hospital. He denied any diarrhea or lower abdominal pain, no shortness of breath or cough, no headache, no fevers, no nausea or vomiting. Reports rare alcohol, no smoking no substance use. No medications or any other inciting incidents. [facility] Medical History (Updated 10/12/23 @ 12:[address] Michael Mehta DO) Acute pancreatitis Home Medications ?Medication ?Instructions ?Recorded ?Last Taken ?Type NK 10/12/23 Unknown History Allergy/AdvReac Type Severity Reaction Status Date / Time No Known Allergies Allergy Verified 09/06/17 06:57 Surgical History (Updated 10/12/23 @ 09:[address] Michael Mehta DO) History of cholecystectomy Social History Smoking Status: Never smoker ROS ROS Narrative General: Denies fever/chills HENT: Denies headache, denies stuffy nose, denies sore throat EYES: Denies changes in vision Resp: Denies cough, denies shortness of breath Cardiac: Denies chest pain GI: Epigastric pain, denies changes in bowel, denies nausea/vomiting : Denies changes in urination Extremity: Denies swelling, does have some left shoulder pain MSK: Denies weakness Neuro: Denies any numbness/tingling Heme: Denies any bleeding or bruising Skin: Denies rashes Psychiatric: No complaints voiced Vital Signs Vital Signs Vital Signs: 10/12/23 08:22 10/12/23 10:22 10/12/23 12:00 Temperature 97.2 F L Temperature Source Temporal Pulse Rate 114 H 89 97 Respiratory Rate 22 H 28 H 20 H Blood Pressure 135/89 H 122/82 H 123/76 H Blood Pressure Mean 104 95 91 Pulse Ox 98 100 98 Oxygen Delivery Method Room Air Room Air Weight Weight: 81.737 kg Body Mass Index (BMI) 27.3 Physical Exam Narrative General: Alert, oriented, no apparent distress HEENT: Atraumatic, normocephalic Eyes: Anicteric, normal conjunctiva, extraocular movements grossly intact Neck: Supple Respiratory: Clear to auscultation bilaterally, normal respiratory effort Cardiovascular: Regular rate and rhythm GI: Soft, some epigastric tenderness on palpation without rebound, guarding, rigidity Extremities: No edema Musculoskeletal: Moving all extremities, able to move shoulders and no tenderness on palpation Neuro: No overt focal neurological deficits Skin: No rashes appreciated Psych: Cooperative Results Lab / Micro Data 10/12/23 09:35 10/12/23 09:35 Labs: Laboratory Results - last 24 hr 10/12/23 08:47: Urine Color Yellow, Urine Clarity Clear, Urine pH 6.5, Ur Specific [place] 1.015, Urine Protein 30 H, Urine Glucose (UA) Normal, Urine Ketones 5 H, Urine Occult Blood 10 H, Urine Nitrite Negative, Urine Bilirubin Negative, Urine Urobilinogen 1 H, Ur Leukocyte Esterase 25 H, Urine RBC 0-5 SEEN, Urine WBC 0-5 SEEN, Ur Squamous Epith Cells 0 SEEN, Urine Bacteria 1+, Urine Mucus 2+ 10/12/23 09:35: WBC 6.7, RBC 5.21, Hgb 14.6, Hct 45.3, MCV 86.9, MCH 28.0, MCHC 32.2, RDW Std Deviation 39.8, RDW Coeff of [place] 12.6, Plt Count 248, MPV 10.5, Immature Gran % (Auto) 0.300, Neut % (Auto) 80.6 H, Lymph % (Auto) 10.5 L, [place] % (Auto) 7.8, Eos % (Auto) 0.5, Baso % (Auto) 0.3, Absolute Neuts (auto) 5.4, Absolute Lymphs (auto) 0.70 L, Nucleated RBC % 0, PT 13.6, INR 1.0, APTT 24.8, D-Dimer Quant (PE/DVT) 2.91 H*, Sodium 135 L, Potassium 4.1, Chloride 103, Carbon Dioxide 27.0, Anion Gap 5, BUN 17, Creatinine 1.05, Estim Creat Clear Calc 100.43, Est GFR (MDRD) Af Amer 107, Est GFR (MDRD) Non-Af 89, BUN/Creatinine Ratio 16.2, Glucose 121 H, Calcium 9.3, Total Bilirubin 0.70, AST 18, ALT 41, Alkaline Phosphatase 96, Troponin I High Sens < 3 L, Total Protein 7.9, Albumin 4.0, Globulin 3.9, Albumin/Globulin Ratio 1.0, Lipase 137 H Micro: Microbiology 10/12/23 09:55 Mucosa - Nose SARS-CoV-2, Influenza & RSV (PCR) - Final SARS-CoV-2 (COVID 19 PCR) Imaging Radiology Impression Abdomen CT 10/12/23 10:04 IMPRESSION: Findings in keeping with acute pancreatitis and large pseudocyst. Small amount of perihepatic fluid. Electronically Signed: Que Yoo MD at 11:04 EDT , Chest CTA 10/12/23 10:04 IMPRESSION: No evidence of pulmonary embolism. Mild bibasilar atelectasis and tiny left pleural effusion. 8.2 cm x 8.2 cm cystic mass in the left upper quadrant behind the greater curvature of the stomach and in the region of the body and tail the pancreas with increased surrounding inflammatory changes as described. Acute pancreatitis with pseudocyst formation should be ruled out. Electronically Signed: Que Yoo MD at 10:58 EDT , Chest X-Ray 10/12/23 10:15 IMPRESSION: Normal x-ray examination of the chest. Electronically Signed: Que Yoo MD at 10:50 EDT , Assessment & Plan Assessment/Plan (1) Acute pancreatitis: (2) COVID-19: (3) History of cholecystectomy: PLAN: Plan #Mild acute pancreatitis/large pseudocyst -Seen on CT scan, 8.2 cm x 8.2 cm cystic mass in the left upper quadrant adjacent to the lesser curvature of the stomach in the region of the body and tail portions of the pancreas with surrounding inflammatory changes, additionally there is evidence of a 2.68 cm x 1.9 cm cystic structure along the anterior lateral aspect of the dominant cystic mass as well as some small amount of perihepatic fluid -Lipase 137 and epigastric pain -IVF -CLD -Pain control -Discussed with GI and patient will need GI follow-up, it was advised to get a CA 19-9 and an MRCP, these have been ordered and patient informed -Also check A1c and lipid panel -Patient does have history of cholecystectomy #Covid 19/elevated D-dimer -CTA negative -No specific COVID symptoms noted -100% on room air, no indication for steroids or other treatment -Supportive care #DVT ppx: Lovenox subcu Darline Mccurdy MD Time spent in the patient's overall evaluation,decision-making process, review of diagnostic data, adjustment of management, discussion with other providers, nursing nursing and ancillary staff involved in patient's care documentation, 60 minutes Charges/Coding Visit Charges Inpatient E&M: 36102 Init Hosp L2
[2023-10-12] MEDS: 0.9% Normal Saline (1000mL) 1,000 ML 100 ML IV (14:27)
--- NOTE | 2023-10-12 16:56 | MRI_ITS ---
STUDY: MRI ABDOMEN WITHOUT CONTRAST REASON FOR EXAM: Male, 28 years old. Pancreatitis and large pseudocyst TECHNIQUE: Standardized fat and water weighted pulse sequences were obtained in all 3 orthogonal planes. MRCP sequence with 3-D reconstructions performed. COMPARISON: CT FINDINGS: The visualized lung bases are unremarkable. The visualized portions of the heart are within normal limits. There is hepatomegaly with diffuse hepatic enlargement. The gallbladder is not seen consistent with cholecystectomy Normal spleen. There is diffuse enlargement of the body and tail of the pancreas with liliane-pancreatic edema suggesting acute pancreatitis. There is 9.2 x 8.4 cm increased T1 and T2 signal thick-walled collection consistent with pseudocyst at the tail the pancreas extending to the posterior wall of the stomach. There are additional fluid collections compatible with pseudocysts including with components measuring 2.7 and 2.8 cm. There is mild free fluid in the abdomen. Normal bilateral adrenal glands. Normal right kidney. Normal left kidney. Normal visualized stomach. Normal small intestine. Normal colon. There is non-visualization of the appendix. Normal abdominal aorta. Normal inferior vena cava. Normal retroperitoneum. Normal abdominal wall. Normal osseous structures. MRI/MRCP Abdomen without Contrast IMPRESSION: Acute pancreatitis with thick walled and complex fluid collections in the left upper abdomen consistent with pseudocysts. Hepatomegaly. No biliary dilatation. Mild free fluid. Electronically Signed: Kevin Saldivar MD at 22:02 EDT ,
[2023-10-12 17:34] LABS: Cholesterol 165 mg/dL (200); High Density Lipoprotein 41 mg/dL; Triglycerides 89 mg/dL; Very Low Density Lipoprotein 18 mg/dL (5-40)
[2023-10-12 17:52] LABS: Hemoglobin A1c 5.2 % (3.8-5.6)
[2023-10-12] MEDS: MELATONIN 3 MG TABLET PO (22:23)
[2023-10-13 05:08] VITALS: BP 101/65; PULSE 81; RESP 18; TEMP 36.7; O2SAT 96
[2023-10-13] MEDS: 0.9% Normal Saline (1000mL) 1,000 ML 75 ML IV (05:09)
[2023-10-13 07:42] LABS: Absolute Lymphocyte Count 0.96 X10^3/uL (0.83-4.51); Absolute Neutrophil Count 2.2 X10^3/uL (2.0-7.7); Basophil# 0.02 X10^3/uL; Basophil% 0.6 % (0-1); Eosinophil# 0.07 X10^3/uL; Eosinophils% 1.9 % (0-5); Hematocrit 36.6 % (40-54); Lymphocyte # 0.96 X10^3/ul (0.83-4.51); Lymphocyte % 26.7 % (19-41); Mean Corp Hgb Conc 32.8 g/dL (32-36); Mean Corpuscular Hgb 28.9 pg (27.0-32.0); Mean Corpuscular Volume 88.2 fL (80-94); Mean Platelet Vol. 10.6 fl (6.2-12.0); Monocyte# 0.31 X10^3/uL; Monocyte% 8.6 % (0-10); NRBC Flagged by Analyzer 0 % (0-5); Neutrophil # 2.23 X10^3/uL (2.7-7.7); Neutrophil % 61.9 % (47-70); Platelet Count 192 K/mm3 (150-450); RBC Distribution Width CV 12.7 % (11.6-14.6); RBC Distribution Width SD 41.1 fl (35.1-43.9); Red Blood Count 4.15 M/mm3 (4.6-6.2); White Blood Count 3.6 K/mm3 (4.4-11.0)
[2023-10-13 08:06] LABS: International Normalized Ratio 1.2; Prothrombin Time (Protime)PT. 14.9 SECONDS (11.7-14.9)
[2023-10-13 08:11] LABS: AST(SGOT) 17 U/L (15-37); Alanine Aminotransfer ALT/SGPT 38 U/L (16-61); Albumin, Serum 3.2 g/dL (3.2-5.0); Alkaline Phosphatase 73 U/L (45-117); Anion Gap 4 (5-15); BUN 14 mg/dL (7-18); BUN/Creat Ratio 19.1 RATIO (10-20); Calcium,Total 8.8 mg/dL (8.5-10.1); Chloride 105 mmol/L (98-107); Creatinine, Serum 0.73 mg/dL (0.70-1.30); EST Glomerular Filtration Rate 134 mL/min (>60); Est Glom Filt Rate - Afr Amer 162 mL/min (>60); Estimated Creatinine Clearance 163.88 ml/min; Globulin 3.3 g/dL (2.2-4.2); Glucose 87 mg/dL (74-106); Magnesium 2.1 mg/dL (1.6-2.6); Potassium 3.9 mmol/L (3.5-5.1); Protein, Total 6.5 g/dL (6.4-8.2); Sodium Level 136 mmol/L (136-145)
[2023-10-13 10:06] VITALS: BP 120/64; PULSE 88; RESP 18; TEMP 36.9; O2SAT 98
--- NOTE | 2023-10-13 13:03 | DCINST_ITS ---
Discharge Instructions Diet Discharge Diet: Low fat / Low cholesterol Activity Discharge Activity: Return to Normal Activity Follow Up Care Test Results: Test results from this visit will be discussed in further detail at your follow- up appointment, if applicable. Discharge Plan Admission Admit Date/Time: 10/12/23 12:27 Primary Reason for Your Visit: Covid and acute pancreatitis Attending Provider: Darline Mccurdy Primary Care Provider: Care Physician,No Primary Instructions Patient Instructions: Pancreatic Pseudocysts, How COVID-19 Spreads, ED Pancreatitis Additional Instructions / Restrictions: DISCHARGE INSTRUCTIONS PLEASE READ *Please take this with you to your next doctors appointment* -Given the cyst in your pancreas you will need to follow-up with Dr. Barajas with GI in his office upon discharge. Please call his office to schedule your a ppointment (ph. [phone]) -It is advised to avoid alcohol -Is advised to adhere to low-fat diet -Please call your primary care provider's office upon discharge to schedule a hospital follow up within 1 week. -If you do not have a primary care physician of list of local primary care physicians can be provided for you upon discharge. Please ask for this list prior to discharge -For any concerning signs or symptoms please call 911 or proceed to the nearest emergency department Discharge Orders/Prescriptions Prescriptions: No Action NK Referrals / Follow Up: SHANON THOMAS [Other] Denton Barajas DO [Med Staff - Active Staff] - ( -You will need to follow-up with Dr. Barajas with GI in his office upon discharge. Please call his office to schedule (ph. [phone])) Care Physician,No Primary [Primary Care Provider] - ( -If you do not have a primary care physician of list of local primary care physicians can be provided for you upon discharge. Please ask for this list prior to discharge ) Disposition Disposition (needs filled in before D/C Order can be placed): Home, Self Care
--- NOTE | 2023-10-13 13:07 | PCM.DC.SUM ---
Providers Date of Admission: 10/12/23 Date of Discharge: 10/13/23 Primary Care Physician: No Primary Care Phys Reason For Visit: ACUTE PANCREATITIS, COVID Diagnosis Discharge Diagnosis (1) Acute pancreatitis: Status: Acute Code(s): K85.90 - Acute pancreatitis without necrosis or infection, unspecified (2) COVID-19: Status: Acute Code(s): U07.1 - COVID-19 (3) History of cholecystectomy: Status: Chronic Code(s): Z90.49 - Acquired absence of other specified parts of digestive tract Plan #Mild acute pancreatitis/large pseudocyst #Covid 19/elevated D-dimer Medications at Discharge Home Medications NK 10/12/23 Hospital Course Summary of Care Provided Minutes Spent on Discharge: 31 Hospital Course: 28 M with history of pancreatitis 6 years ago who presented to [facility] ED with several hours of left shoulder pain that then radiated to his epigastric region and he just felt generally unwell prompting him to come to the ED. In the ED he was found to have a D-dimer of 2.91 and had a CTA which was negative so COVID test obtained and was positive. Given some of the pain radiating to the epigastric region CT abdomen was obtained and he had a 8.2 cm x 8.2 cm cystic mass in the left upper quadrant adjacent to the lesser curvature of the stomach in the region of the body and tail portions of the pancreas with surrounding inflammatory changes with a 2.68 cm x 1.9 cm cystic structure along the anterior lateral aspect of the dominant cystic mass as well as some small amount of perihepatic fluid. Lipase slightly elevated. Given patient's multiple problems and presentation hospitalist contacted for admission. Patient was started on fluids and obtain MRCP per GI recommendations which showed acute pancreatitis with thick-walled and complex fluid collections in the left upper abdomen consistent with pseudocysts. Patient was able to tolerate food on second day of discharge and was doing well with mild abdominal pain and no nausea or vomiting, no difficulty with his breathing and was comfortable going home. Discussed MRCP findings with GI and was felt it was reasonable for patient to follow-up outpatient. Patient verbalizes understanding. Also discussed the importance of establishing with a primary care physician for further follow-up and management. Discharge instructions as followed: -Given the cyst in your pancreas you will need to follow-up with Dr. Barajas with GI in his office upon discharge. Please call his office to schedule your appointment (ph. [phone]) -It is advised to avoid alcohol -Is advised to adhere to low-fat diet -Please call your primary care provider's office upon discharge to schedule a hospital follow up within 1 week. -If you do not have a primary care physician of list of local primary care physicians can be provided for you upon discharge. Please ask for this list prior to discharge -For any concerning signs or symptoms please call 911 or proceed to the nearest emergency department Physical Exam Narrative General: Alert, oriented, no apparent distress HEENT: Atraumatic, normocephalic Eyes: Anicteric, normal conjunctiva, extraocular movements grossly intact Neck: Supple Respiratory: Clear to auscultation bilaterally, normal respiratory effort Cardiovascular: Regular rate and rhythm GI: Soft, some epigastric tenderness on palpation without rebound, guarding, rigidity Extremities: No edema Musculoskeletal: Moving all extremities, able to move shoulders and no tenderness on palpation Neuro: No overt focal neurological deficits Skin: No rashes appreciated Psych: Cooperative Weight / BMI Weight Weight: 83.461 kg Body Mass Index (BMI) 24.9 ABG / Lab / Microbiology Data 10/13/23 07:19 10/13/23 07:19 Laboratory: Laboratory Results - last 24 hr 10/12/23 09:35: Hemoglobin A1c 5.2, Triglycerides 89, Cholesterol 165, LDL Cholesterol 106, VLDL Cholesterol 18, HDL Cholesterol 41 10/13/23 07:19: WBC 3.6 L, RBC 4.15 L, Hgb 12.0 L, Hct 36.6 L, MCV 88.2, MCH 28.9, MCHC 32.8, RDW Std Deviation 41.1, RDW Coeff of [place] 12.7, Plt Count 192, MPV 10.6, Immature Gran % (Auto) 0.300, Neut % (Auto) 61.9, Lymph % (Auto) 26.7, [place] % (Auto) 8.6, Eos % (Auto) 1.9, Baso % (Auto) 0.6, Absolute Neuts (auto) 2.2, Absolute Lymphs (auto) 0.96, Nucleated RBC % 0, PT 14.9, INR 1.2, Sodium 136, Potassium 3.9, Chloride 105, Carbon Dioxide 27.0, Anion Gap 4 L, BUN 14, Creatinine 0.73, Estim Creat Clear Calc 163.88, Est GFR (MDRD) Af Amer 162, Est GFR (MDRD) Non-Af 134, BUN/Creatinine Ratio 19.1, Glucose 87, Calcium 8.8, Magnesium 2.1, Total Bilirubin 1.00, AST 17, ALT 38, Alkaline Phosphatase 73, Total Protein 6.5, Albumin 3.2, Globulin 3.3, Albumin/Globulin Ratio 1.0 Microbiology: Microbiology 10/12/23 09:55 Mucosa - Nose SARS-CoV-2, Influenza & RSV (PCR) - Final SARS-CoV-2 (COVID 19 PCR) Radiography Diagnostic Testing: Radiology Impression MRCP 10/12/23 16:56 IMPRESSION: Acute pancreatitis with thick walled and complex fluid collections in the left upper abdomen consistent with pseudocysts. Hepatomegaly. No biliary dilatation. Mild free fluid. Electronically Signed: Kevin Saldivar MD at 22:02 EDT Reading Location ID and State: [address] [place] [address] , Service support , D/C Instructions Discharge Diet: Low fat / Low cholesterol Meaningful Use Info Meaningful Use Meaningful Use Diagnoses (Choose all that apply): None applicable Ischemic Stroke Statin Dosing Therapy Reference: STATIN DOSE THERAPY REFERENCE: * Patients > 75 years receive moderate or high dose statin therapy. * Patients 75 years or YOUNGER should receive HIGH intensity statin dose unless contraindicated. You will be required to document reason for non-treatment if statin daily dose does not meet guidelines. HIGH DOSE STATIN THERAPY DAILY Atorvastatin > than or = to 40 mg Rosuvastatin > than or = to 20 mg Amlodipine + Atorvastatin > than or = to 2.5/40 mg Ezetimibe + Simvastatin 10/80 mg Simvastatin 80mg Discharge Plan Admission Admit Date/Time: 10/12/23 12:27 Primary Reason for Your Visit: Covid and acute pancreatitis Attending Provider: Darline Mccurdy Primary Care Provider: Care Physician,Jolly Primary Instructions Patient Instructions: Pancreatic Pseudocysts, How COVID-19 Spreads, ED Pancreatitis Additional Instructions / Restrictions: DISCHARGE INSTRUCTIONS PLEASE READ *Please take this with you to your next doctors appointment* -Given the cyst in your pancreas you will need to follow-up with Dr. Barajas with GI in his office upon discharge. Please call his office to schedule your appointment (ph. [phone]) -It is advised to avoid alcohol -Is advised to adhere to low-fat diet -Please call your primary care provider's office upon discharge to schedule a hospital follow up within 1 week. -If you do not have a primary care physician of list of local primary care physicians can be provided for you upon discharge. Please ask for this list prior to discharge -For any concerning signs or symptoms please call 911 or proceed to the nearest emergency department Discharge Orders/Prescriptions Prescriptions: No Action NK Referrals / Follow Up: SHANON THOMAS [Other] Denton Barajas DO [Med Staff - Active Staff] - ( -You will need to follow-up with Dr. Barajas with GI in his office upon discharge. Please call his office to schedule (ph. [phone])) Care Physician,No Primary [Primary Care Provider] - ( -If you do not have a primary care physician of list of local primary care physicians can be provided for you upon discharge. Please ask for this list prior to discharge ) Disposition Disposition (needs filled in before D/C Order can be placed): Home, Self Care Charges/Coding Visit Charges Inpatient E&M: 01649 Disch Hosp >30min
--- NOTE | 2023-10-13 13:56 | CASEMGMT ---
Noted pt does not have a PCP, RN FRANCES provided brochure with local PCP to nurse, she will give to pt with DC planning instructions.
[2023-10-13 14:17] VITALS: BP 112/60; PULSE 93; RESP 18; TEMP 37.1; O2SAT 98
[2023-10-14 17:07] LABS: Carbohydrate Ag 19-9 2261 6 U/mL (0-35)
== END 2023-10-13 14:27 | disposition home or self-care (01) ==
LOC: ED 12:05 → MS3 13:41
PROVIDERS: Admitting Provider Internal Medicine; Emergency Provider Emergency Medicine; Visit Provider Internal Medicine
DX: U07.1 COVID-19 (principal); K86.2 Cyst of pancreas; K85.90 Acute pancreatitis without necrosis or infection, unspecified; M25.512 Pain in left shoulder; Z90.49 Acquired absence of other specified parts of digestive tract
CPT/HCPCS: 36415; 71046; 71275; 74160; 74181; 80053; 80061; 81001; 83036; 83690; 83735; 84484; 85025; 85379; 85610; 85730; 86301; 87631; 93005; 96361; 96374; 96376; 99221; 99285; J7030; Q9967; A4216; G0378

== ENCOUNTER → 2023-11-24 | Outpatient (CLI) | payer OTHER, SELFPAY ==
[2023-11-24 15:17] LABS: Absolute Lymphocyte Count 0.97 X10^3/uL (0.83-4.51); Absolute Neutrophil Count 2.6 X10^3/uL (2.0-7.7); Basophil# 0.03 X10^3/uL; Basophil% 0.8 % (0-1); Eosinophil# 0.04 X10^3/uL; Hematocrit 39.9 % (40-54); Hemoglobin 12.8 g/dL (13.0-16.5); Lymphocyte # 0.97 X10^3/ul (0.83-4.51); Lymphocyte % 24.3 % (19-41); Mean Corp Hgb Conc 32.1 g/dL (32-36); Mean Corpuscular Volume 87.3 fL (80-94); Mean Platelet Vol. 11.5 fl (6.2-12.0); Monocyte% 7.5 % (0-10); NRBC Flagged by Analyzer 0 % (0-5); Neutrophil # 2.64 X10^3/uL (2.7-7.7); Neutrophil % 66.1 % (47-70); Platelet Count 186 K/mm3 (150-450); RBC Distribution Width CV 13.1 % (11.6-14.6); RBC Distribution Width SD 41.5 fl (35.1-43.9); Red Blood Count 4.57 M/mm3 (4.6-6.2)
[2023-11-24 15:30] LABS: Erythrocyte Sedimentation Rate 5 mm/hr (0-20)
[2023-11-24 16:00] LABS: ALB/GLOB Ratio 1.1 RATIO (0.9-2.4); AST(SGOT) 37 U/L (15-37); Alanine Aminotransfer ALT/SGPT 63 U/L (16-61); Albumin, Serum 4.1 g/dL (3.2-5.0); Alkaline Phosphatase 98 U/L (45-117); Amylase 153 U/L (25-115); Anion Gap 6 (5-15); BUN 13 mg/dL (7-18); Calcium,Total 9.4 mg/dL (8.5-10.1); Chloride 103 mmol/L (98-107); Creatinine, Serum 0.81 mg/dL (0.70-1.30); EST Glomerular Filtration Rate 119 mL/min (>60); Est Glom Filt Rate - Afr Amer 144 mL/min (>60); Ferritin 111 ng/mL (26-388); Globulin 3.8 g/dL (2.2-4.2); Glucose 84 mg/dL (74-106); Lipase 85 U/L (13-75); Potassium 3.5 mmol/L (3.5-5.1); Protein, Total 7.9 g/dL (6.4-8.2); Sodium Level 137 mmol/L (136-145)
[2023-11-29 11:59] LABS: Anti-Centromere B Ab <0.2 AI (0.0-0.9); Anti-Chromatin <0.2 AI (0.0-0.9); Anti-Jo <0.2 AI (0.0-0.9); Anti-Scleroderma-70 AB <0.2 AI (0.0-0.9); Anti-dsDNA Ab 1 IU/mL (0-9); RNP Ab <0.2 AI (0.0-0.9); SJOGREN'S Anti-SS-A test < 0.2 AI (0.0-0.9); SJOGREN'S Anti-SS-B test < 0.2 AI (0.0-0.9); Smith Ab <0.2 AI (0.0-0.9)
[2023-12-01 01:07] LABS: ACCA 12 units (0-90); ALCA 18 units (0-60); AMCA 177 units (0-100); Albumin 4.2 g/dL (2.9-4.4); Alpha-1-Globulins 0.3 g/dL (0.0-0.4); Alpha-2-Globulins 0.7 g/dL (0.4-1.0); Cytoplasmic Ab (C-ANCA) <1:20 titer (Neg:<1:20); Deamidated Gliadin IgA 2 units (0-19); Deamidated Gliadin IgG 2 units (0-19); Endomysial Antibody IgA Negative (Negative); Gamma Globulin 1.2 g/dL (0.4-1.8); IgG, Quant 1160 mg/dL (603-1613); Immunoglobulin A 190 mg/dL (90-386); Immunoglobulin E 24 IU/mL (6-495); Immunoglobulin G, Subclass 1 464 mg/dL (248-810); Immunoglobulin G, Subclass 2 528 mg/dL (130-555); Immunoglobulin G, Subclass 3 108 mg/dL (15-102); Immunoglobulin G, Subclass 4 44 mg/dL (2-96); Immunoglobulin M 132 mg/dL (20-172); PROEL- TOTAL PROTEIN 7.4 g/dL (6.0-8.5); Perinuclear Ab (P-ANCA) <1:20 titer (Neg:<1:20); gASCA 52 units (0-50); t-Transglutaminase IgA <2 U/mL (0-3)
== END | disposition home or self-care (01) ==
LOC: LAB 13:55
PROVIDERS: Referring Provider Internal Medicine Gastroenterology; Visit Provider Internal Medicine Gastroenterology
DX: R94.5 Abnormal results of liver function studies (principal); R73.9 Hyperglycemia, unspecified; Z90.49 Acquired absence of other specified parts of digestive tract
CPT/HCPCS: 36415; 80053; 82150; 82728; 82784; 82785; 82787; 83516; 83690; 84165; 85025; 85652; 86036; 86140; 86225; 86235; 86255; 86256; 86334; 86671

== ENCOUNTER → 2023-11-28 | Outpatient (CLI) | payer OTHER, SELFPAY | END | disposition home or self-care (01) | DX: Z00.00 Encounter for general adult medical examination without abnormal findings (principal) | CPT/HCPCS: 36415 ==

== ENCOUNTER → 2023-11-29 | Outpatient (CLI) | payer OTHER, SELFPAY | END | disposition home or self-care (01) | PROVIDERS: Referring Provider Internal Medicine Gastroenterology; Visit Provider Internal Medicine Gastroenterology | DX: K85.90 Acute pancreatitis without necrosis or infection, unspecified (principal) | CPT/HCPCS: 36415 ==

== ENCOUNTER 2023-12-13 15:12 | Emergency (ER) | payer OTHER, SELFPAY ==
[2023-12-13 15:13] VITALS: BP 140/102; PULSE 105; RESP 18; TEMP 36.6; O2SAT 98; BMI 21.6
--- NOTE | 2023-12-13 15:28 | EKG12_ITS ---
Test Reason : ABD PAIN Blood Pressure : / mmHG Vent. Rate : 087 BPM Atrial Rate : 087 BPM P-R Int : 144 ms QRS Dur : 088 ms QT Int : 360 ms P-R-T Axes : 071 076 066 degrees QTc Int : 433 ms Normal sinus rhythm with sinus arrhythmia Normal ECG Confirmed by Lan Ruvalcaba ([id number]), senior editor THERESE SILVERMAN ([id number]) on 12/14/2023 10:15:30 AM Referred By: Confirmed By:Lan Ruvalcaba
--- NOTE | 2023-12-13 15:39 | EX.ED.DYSGE1 ---
HPI History of Present Illness Chief Complaint: Abd Pain Narrative Narrative: Patient is a 28-year-old male with a past medical history of pancreatitis, history of cholecystectomy who presents to the emergency department with a chief complaint of left-sided flank pain. He states that Back in September he was diagnosed with pancreatitis and he had been following with Dr. Barajas with gastroenterology recently. He states that he had blood work obtained as he not been feeling well. He states that as the week is progressed he has felt worse she states that he finds in a difficult position to get comfortable and notes that he has this left side pain. Patient denies any history of DVTs or PEs denies any recent travel history. Patient states that he has been eating and drinking for his normal self he states that he has not made diet modifications to avoid from flaring his pancreas. He states that he is lost 30 pounds in the last several months. Patient denies any recent sick contacts. Patient did note that he is supposed to have upper EGD and colonoscopy as well as MRCP performed in the near future. [facility] Medical History Acute pancreatitis Home Medications ?Medication ?Instructions ?Recorded ?Last Taken ?Type ondansetron 4 mg disintegrating 4 mg PO Q8H PRN nausea and 12/13/23 Unknown Rx tablet vomiting #14 tabs oxycodone-acetaminophen 5 mg-325 1 tab PO Q6H PRN pain 3 days #12 12/13/23 Unknown Rx mg tablet (Endocet) tabs Allergy/AdvReac Type Severity Reaction Status Date / Time No Known Allergies Allergy Verified 12/13/23 15:22 Surgical History History of cholecystectomy Social History Smoking Status: Never smoker ROS ROS ED ROS Narrative Constitutional: Denies any fevers, chills, headaches, lightheadedness, dizziness Eyes: Denies change in vision double vision blurry vision Cardiovascular: Denies chest pain or palpitations Respiratory: Denies cough and wheezing shortness of breath Abdomen: Complains of left-sided pain in the abdomen/flank region as noted above denies nausea vomiting diarrhea : Denies any urinary symptoms Neurological: Denies numbness, weakness, tingling Musculoskeletal: Complains of some left-sided back pain Skin: Denies rashes or lesions EXAM Physical Exam Narrative Exam Narrative: General: Patient was lying in bed rest comfortably did not appear to be in acute distress Head: Atraumatic, normocephalic Eyes: PERRL bilaterally, EOMI bilateral, no conjunctival injection noted Neck: Soft, supple, trach midline Cardiovascular: Patient was tachycardic with a regular rhythm no murmurs gallops rubs noted Respiratory: Clear to auscultation bilaterally no rales rhonchi wheeze noted Abdomen: Soft, tenderness palpation left upper quadrant no rebound or guarding on exam, bowel sounds present x 4 Musculoskeletal: Patient has some left CVA tenderness on exam no tenderness palpation midline thoracolumbar spine Extremities: +5/5 strength noted in the bilateral upper and lower extremities, no pedal edema neuroexam Neurological: Patient was following commands knew that he was at [facility] years 2023 Skin: Warm, dry, intact no rashes or lesions noted Const Vital Signs: 12/13/23 15:13 12/13/23 18:03 12/13/23 19:38 Temperature 97.9 F 98.2 F Temperature Source Temporal Pulse Rate 105 H 89 75 Respiratory Rate 18 16 16 Blood Pressure 140/102 H 100/85 H Blood Pressure Mean 114 90 Pulse Ox 98 98 98 Oxygen Delivery Method Room Air Room Air 12/13/23 20:00 Temperature Temperature Source Pulse Rate 66 Respiratory Rate 16 Blood Pressure 134/78 H Blood Pressure Mean 96 Pulse Ox 98 Oxygen Delivery Method Room Air MDM MDM MDM Narrative Medical decision making narrative: Patient is a 28-year-old male who presented to the emerged part with a chief complaint of left-sided flank/back pain. Patient will have a workup performed here on the differential diagnose includes but limited to acute on chronic pancreatitis, urolithiasis, UTI, pyelonephritis, PE. Once workup is obtained and reviewed he will be reevaluated. Patient be given IV fluids for hydration. Patient be given Toradol for pain control. Patient did note that he had blood work obtained today in the outpatient setting. Patient CBC reviewed and showed no evidence of leukocytosis white blood count normal at 6, hemoglobin was stable 13.3, plate count normal at 229. Patient's sodium normal 134, potassium normal 3.6, creatinine normal at 0.96. Patient's AST and ALT were 39 and 76 respectively troponin normal at less than 3. Patient's EKG reviewed showed normal sinus rhythm with a rate of 87 bpm. Patient's urinalysis showed negative nitrites negative leukocyte esterase with 1+ bacteria this was sent for culture he is not have any urinary symptoms. Patient's blood work from his outpatient was reviewed today and showed a CRP of 51, amylase and lipase of 39 and 41 respectively. When compared to previous his amylase is better and his lipase is increased from the previous blood draw. Patient D-dimer elevated 1.[address] angiography the chest was added on on as well as CT abdomen pelvis. Patient CT angiography chest reviewed and showed no acute dissection or evidence of pulmonary embolism. Patient CT abdomen pelvis with IV contrast showed a stable dominant pseudocyst of the body and tail of the pancreas. Cannot exclude associated acute pancreatitis correlate with liver function test. Mild intra and extrahepatic bile duct distention. There is a new pseudocyst along the anterior margin of the spleen. This is likely representing the patient's left-sided discomfort. Did discuss results with the patient and did offer admission however he states that he would like to go home and follow-up with Dr. Barajas in the outpatient setting. He states that he will call him tomorrow morning to discuss the findings as well as the next weeks scopes as well as MRCP. Patient was requesting pain medication which she will be scented prescription for Percocet/Endocet and Zofran. He was encouraged to return for persistent vomiting diarrhea not tolerating oral intake as well as any other concerns. He is agreeable with this plan all question concerns answered he is discharged home in stable condition. Lab Data Labs: Laboratory Results - last 24 hr 12/13/23 12/13/23 15:39 15:57 WBC 6.0 RBC 4.83 Hgb 13.3 Hct 41.0 MCV 84.9 MCH 27.5 MCHC 32.4 RDW Std Deviation 39.0 RDW Coeff of [place] 12.6 Plt Count 229 MPV 11.2 Immature Gran % (Auto) 0.200 Neut % (Auto) 74.3 H Lymph % (Auto) 16.8 L [place] % (Auto) 7.0 Eos % (Auto) 1.0 Baso % (Auto) 0.7 Absolute Neuts (auto) 4.4 Absolute Lymphs (auto) 1.00 Nucleated RBC % 0 D-Dimer Quant (PE/DVT) 1.95 H* Sodium 134 L Potassium 3.6 Chloride 99 Carbon Dioxide 26.0 Anion Gap 9 BUN 12 Creatinine 0.96 Estim Creat Clear Calc 116.11 Est GFR (MDRD) Af Amer 119 Est GFR (MDRD) Non-Af 99 BUN/Creatinine Ratio 12.5 Glucose 107 H Calcium 9.7 Total Bilirubin 0.70 AST 39 H ALT 76 H Alkaline Phosphatase 102 Troponin I High Sens < 3 L Total Protein 8.4 H Albumin 4.1 Globulin 4.3 H Albumin/Globulin Ratio 1.0 Urine Color Yellow Urine Clarity Clear Urine pH 6.5 Ur Specific [place] 1.010 Urine Protein Negative Urine Glucose (UA) Normal Urine Ketones 15 H Urine Occult Blood 10 H Urine Nitrite Negative Urine Bilirubin Negative Urine Urobilinogen Normal Ur Leukocyte Esterase Negative Urine RBC 0 SEEN Urine WBC 0 SEEN Ur Squamous Epith Cells 0 SEEN Urine Bacteria 1+ Urine Mucus 0 SEEN Radiography Diagnostic Testing: Clinical Impression(s) from Imaging Studies Chest X-Ray 12/13/23 15:50 IMPRESSION: Normal x-ray examination of the chest. Electronically Signed: Enmanuel Mata MD at 16:55 EDT Reading Location ID and State: [id number] / [employer] , Service support , Abdomen/Pelvis CT 12/13/23 16:23 IMPRESSION: Stable dominant pseudocyst of the body and tail of pancreas. Cannot exclude associated acute pancreatitis, correlate with liver function tests. Mild intra and extrahepatic bile duct distention. There is a new pseudocyst along the anterior margin of the spleen. No other significant changes or acute abnormalities. Electronically Signed: Enmanuel Mata MD at 19:27 EDT Reading Location ID and State: [email or web address] / [employer] , Service support , Chest CTA 12/13/23 16:23 IMPRESSION: Normal CTA chest examination, without a demonstrated pulmonary embolism or arterial dissection. Electronically Signed: Enmanuel Mata MD at 17:16 EDT Reading Location ID and State: [email or web address] / [employer] , Service support , Discharge Plan Triage Chief Complaint: Abd Pain ED Provider: Severino Kaur Dx/Rx/DC Orders Clinical Impression: Abdominal pain, Pancreatitis Prescriptions: New oxycodone-acetaminophen [Endocet] 5-325 mg tablet 1 tab PO Q6H PRN (Reason: pain) 3 Days Qty: 12 0RF ondansetron 4 mg tablet,disintegrating 4 mg PO Q8H PRN (Reason: nausea and vomiting) Qty: 14 0RF Primary Care Provider: Care Physician,Jolly Primary Referrals: Care Physician,No Primary [Primary Care Provider] - Xiao Knutson MD [Med Staff - Revenue Stamper] - Denton Barajas DO [Med Staff - Active Staff] - Activity Restrictions/Additional Instructions: Use the narcotics for severe pain. Eat a bland diet. Return for worsening pain, inability to keep anything down with vomiting or any other concerns. Follow-up with Dr. Barajas call his office tomorrow and notify him that you are here. Follow-up with your primary care physician as well. Print Language: Sami Disposition Disposition: Home, Self Care
[2023-12-13] MEDS: 0.9% Normal Saline (1000mL) 1,000 ML 999 ML IV (15:41)
[2023-12-13] MEDS: Ketorolac 15 MG/ML Vial IV (15:41)
--- NOTE | 2023-12-13 15:50 | RAD_ITS ---
STUDY: X-RAY CHEST REASON FOR EXAM: Male, 28 years old. left side pain TECHNIQUE: Frontal and lateral views of the chest. COMPARISON: 10/12/2023. FINDINGS: The lungs are clear and expanded. There is no demonstrated pleural abnormality. Normal size heart. Normal mediastinum and toshia. Normal visualized pulmonary arteries. Normal visualized aortic arch and descending thoracic aorta. Normal visualized thoracic spine. Normal visualized ribs, clavicles, and shoulders. There is no demonstrated abnormality of the visualized soft tissue structures of the upper abdomen. RAD/Chest PA and Lateral IMPRESSION: Normal x-ray examination of the chest. Electronically Signed: Enmanuel Mata MD at 16:55 EDT ,
[2023-12-13 15:52] LABS: Absolute Neutrophil Count 4.4 X10^3/uL (2.0-7.7); Basophil# 0.04 X10^3/uL; Basophil% 0.7 % (0-1); Eosinophil# 0.06 X10^3/uL; Hemoglobin 13.3 g/dL (13.0-16.5); Lymphocyte % 16.8 % (19-41); Mean Corp Hgb Conc 32.4 g/dL (32-36); Mean Corpuscular Hgb 27.5 pg (27.0-32.0); Mean Corpuscular Volume 84.9 fL (80-94); Mean Platelet Vol. 11.2 fl (6.2-12.0); Monocyte# 0.42 X10^3/uL; NRBC Flagged by Analyzer 0 % (0-5); Neutrophil # 4.44 X10^3/uL (2.7-7.7); Neutrophil % 74.3 % (47-70); Platelet Count 229 K/mm3 (150-450); RBC Distribution Width CV 12.6 % (11.6-14.6); Red Blood Count 4.83 M/mm3 (4.6-6.2)
[2023-12-13 16:02] LABS: Mucous, Urine 0 SEEN /hpf (<or=2+); Red Blood Cells-Urine 0 SEEN /hpf (0-5); Squamous Epithelial Cells - UA 0 SEEN /hpf (0-5); White Blood Cells 0 SEEN /hpf (0-5)
[2023-12-13 16:19] LABS: AST(SGOT) 39 U/L (15-37); Alanine Aminotransfer ALT/SGPT 76 U/L (16-61); Albumin, Serum 4.1 g/dL (3.2-5.0); Alkaline Phosphatase 102 U/L (45-117); Anion Gap 9 (5-15); BUN 12 mg/dL (7-18); BUN/Creat Ratio 12.5 RATIO (10-20); Calcium,Total 9.7 mg/dL (8.5-10.1); Chloride 99 mmol/L (98-107); Creatinine, Serum 0.96 mg/dL (0.70-1.30); EST Glomerular Filtration Rate 99 mL/min (>60); Est Glom Filt Rate - Afr Amer 119 mL/min (>60); Estimated Creatinine Clearance 116.11 ml/min; Globulin 4.3 g/dL (2.2-4.2); Glucose 107 mg/dL (74-106); Potassium 3.6 mmol/L (3.5-5.1); Protein, Total 8.4 g/dL (6.4-8.2); Sodium Level 134 mmol/L (136-145); Troponin-I HS < 3 pg/mL (3.0-78.0)
[2023-12-13 16:20] LABS: D-Dimer Quantitative (DVT/PE) 1.95 FEU/ug/m (0.27-0.49)
--- NOTE | 2023-12-13 16:23 | CT_ITS ---
STUDY: CTA CHEST REASON FOR EXAM: Male, 28 years old. elevated dimer RADIATION DOSAGE (If Supplied By Facility): CTDIvol = ( 7.37 ) mGy, DLP = ( 865.66 ) mGycm TECHNIQUE: The examination was performed with the intravenous administration of IV 100mL Isovue-370. Post-processing of the angiographic images was performed, with multiplanar reformation and 3D reconstruction. Individualized dose optimization techniques were used for this CT. COMPARISON: 10/12/2023. FINDINGS: Normal enhancement of the main pulmonary artery and right and left pulmonary arteries. Normal enhancement of the bilateral peripheral pulmonary arteries. There is no demonstrated pulmonary embolism. Normal thoracic aorta and visualized great vessels. There is no demonstrated aortic dissection. Normal heart and pericardium. Normal mediastinum. Normal hilar regions. Normal visualized trachea and bronchi. The lungs are well expanded. Normal pulmonary parenchyma. Normal pleura. Normal chest wall structures. Normal osseous structures. Stable appearance of large pancreatic pseudocyst in the upper abdomen. CT/CTA Chest W/WO Contrast IMPRESSION: Normal CTA chest examination, without a demonstrated pulmonary embolism or arterial dissection. Electronically Signed: Enmanuel Mata MD at 17:16 EDT ,
--- NOTE | 2023-12-13 16:23 | CT_ITS ---
STUDY: CT ABDOMEN AND PELVIS WITH CONTRAST REASON FOR EXAM: Male, 28 years old. LUQ pain and left flank pain RADIATION DOSAGE (If Supplied By Facility): CTDIvol = ( 7.37 ) mGy, DLP = ( 865.66 ) mGycm TECHNIQUE: Transaxial images were obtained from the dome of the diaphragm to the symphysis pubis without oral contrast. IV 100mL Isovue-370 was administered. Sagittal and coronal images were reconstructed. Individualized dose optimization techniques were used for this CT. COMPARISON: 10/12/2023. FINDINGS: The visualized lung bases are unremarkable. The visualized portions of the heart are within normal limits. Liver has mild intrahepatic bile duct distention. Gallbladder is not seen. Mild intrahepatic bile duct distention. Correlate with liver function tests. Stable appearance of a large thick walled 9.7 cm pseudocyst involving the body and tail of the pancreas. Additional thick-walled 4.5 cm lesser sac pseudocyst along the anterior margin of the spleen is new since prior exam. Ill-defined inflammatory stranding surrounding the larger pseudocyst. Cannot exclude acute pancreatitis. Splenic varices are seen dorsal to the pseudocyst. Normal bilateral adrenal glands. Normal right kidney. Normal left kidney. Normal visualized stomach. Normal small intestine. Normal colon. The appendix is visualized and appears normal. Normal abdominal aorta. Normal inferior vena cava. Normal retroperitoneum. Normal urinary bladder. Normal abdominal wall. Normal osseous structures. CT/Abdomen/Pelvis W IV Cont ONLY IMPRESSION: Stable dominant pseudocyst of the body and tail of pancreas. Cannot exclude associated acute pancreatitis, correlate with liver function tests. Mild intra and extrahepatic bile duct distention. There is a new pseudocyst along the anterior margin of the spleen. No other significant changes or acute abnormalities. Electronically Signed: Enmanuel Mata MD at 19:27 EDT ,
[2023-12-13 16:38] LABS: Color, Urine Yellow (Yellow); Glucose, Dipstick Normal (Normal); Ketone-Dipstick 15 mg/dl (Negative); Leukocyte Esterase-Dipstick Negative /ul (Negative); Nitrite-Dipstick Negative (Negative); Occult Blood-Urine 10 /ul (Negative); Protein-Dipstick Negative (Negative); Urine Bilirubin Dipstick Negative (Negative); Urine Clarity Clear (Clear); Urine Urobilinogen Normal (Normal); Urine pH 6.5 (5.0 - 8.0)
[2023-12-13 17:14] LABS: Bacteria 1+ /hpf (None Seen)
[2023-12-13 18:03] VITALS: PULSE 89; RESP 16; O2SAT 98
[2023-12-13 19:38] VITALS: BP 100/85; PULSE 75; RESP 16; TEMP 36.8; O2SAT 98
[2023-12-13 20:00] VITALS: BP 134/78; PULSE 66; RESP 16; O2SAT 98
== END 2023-12-13 21:15 | disposition home or self-care (01) ==
PROVIDERS: Emergency Provider Emergency Medicine; Visit Provider Emergency Medicine
DX: K85.90 Acute pancreatitis without necrosis or infection, unspecified (principal); Z90.49 Acquired absence of other specified parts of digestive tract; Z79.899 Other long term (current) drug therapy
CPT/HCPCS: 71046; 71275; 74177; 80053; 81001; 84484; 85025; 85379; 87086; 93005; 96361; 96374; 99284; J7030; A4216

== ENCOUNTER → 2023-12-13 | Outpatient (CLI) | payer OTHER, SELFPAY ==
[2023-12-13 11:16] LABS: Erythrocyte Sedimentation Rate 16 mm/hr (0-20)
[2023-12-13 12:42] LABS: Amylase 139 U/L (25-115); Lipase 141 U/L (13-75)
== END | disposition home or self-care (01) ==
LOC: LAB 10:44
PROVIDERS: Referring Provider Internal Medicine Gastroenterology; Visit Provider Internal Medicine Gastroenterology
DX: K85.90 Acute pancreatitis without necrosis or infection, unspecified (principal)
CPT/HCPCS: 36415; 82150; 83690; 85652; 86140

== ENCOUNTER 2023-12-21 09:14 | Day surgery (SDC) | payer OTHER, SELFPAY ==
[2023-12-21] VITALS (7 sets, daily range): BP systolic 87–126; BP diastolic 50–81; PULSE 67–95; RESP 16; TEMP 36.1–36.5; O2SAT 97–100; BMI 16.2
[2023-12-21] MEDS: Lactated Ringers 1,000 ML 15 ML IV (09:32)
--- NOTE | 2023-12-21 09:50 | PCM.HP.BLA ---
History and Physical Date of Admission: 12/21/23 VIKASH PATEL, is a 28 M who presents to the office today for the evaluation of idiopathic pancreatitis. He has a history of pancreatitis 6 years ago who presented to [facility] ED with several hours of left shoulder pain that then radiated to his epigastric region and he just felt generally unwell prompting him to come to the ED. In the ED he was found to have a D-dimer of 2.91 and had a CTA which was negative so COVID test obtained and was positive. Given some of the pain radiating to the epigastric region CT abdomen was obtained and he had a 8.2 cm x 8.2 cm cystic mass in the left upper quadrant adjacent to the lesser curvature of the stomach in the region of the body and tail portions of the pancreas with surrounding inflammatory changes with a 2.68 cm x 1.9 cm cystic structure along the anterior lateral aspect of the dominant cystic mass as well as some small amount of perihepatic fluid. Lipase slightly elevated. On evaluation patient reported the pain in the left shoulder which initially he thought was a pulled muscle from golfing but when it went to his chest and down to his epigastric region any just felt generally unwell he decided to come to the hospital. He denied any diarrhea or lower abdominal pain, no shortness of breath or cough, no headache, no fevers, no nausea or vomiting. Reports rare alcohol, no smoking no substance use. No medications or any other inciting incidents. He had a very similar episode when he developed pancreatitis back in 2018. It was possibly thought to be secondary to binge drinking at the time. He does not know if he developed any pseudocyst or any problems from it. He did undergo cholecystectomy 2 years prior to him developing pancreatitis in 2018. He has not been drinking any alcohol currently. In the hospital they did triglycerides which were within normal limits and he got a MRCP which had shown mild ductal dilation to 6 mm consistent with previous cholecystectomy. There were no signs of chronic pancreatitis such as strictures or stone disease. There was a large pancreatic pseudocyst in the body of the pancreas along with other pseudocyst near the lesser curvature and greater curvature of the stomach. ROS Const Constitutional: No anorexia, fatigue, fever(s), weight change or sleep problems Eyes Eyes: No change in vision ENT ENT: No abnormal hearing, difficulty swallowing, mouth lesions, tongue swelling or throat swelling Resp Respiratory: No cough or shortness of breath Cardio Cardiology: No chest pain at rest, chest pain with exertion, shortness of breath or dyspnea on exertion Gastro GI: No difficulty swallowing Genitourinary Male: No difficulty urinating or burning urination Musc Musculoskeletal: No joint pain, joint swelling, muscle weakness or decreased muscle mass Skin Skin: No hair loss in leg, yellowing of the eye, itchy eyes, rash, skin ulcer or skin swelling Neuro Neurology: No abnormal hearing, abnormal movements, confusion, unsteady gait/balance or memory loss Psych Psychiatric: No anxiety, No confusion and No memory loss Endo Endocrine: No fatigue or weight change Aller/Imm Allergy/Immunologic: No itchy eyes, throat swelling or tongue swelling Dung/Lymp Hematologic/Lymphatic: No easy bleeding, easy bruising or enlarged lymph nodes Exam Const General: cooperative and comfortable Nutritional Appearance: average body habitus and well nourished HENMT Head: normal to inspection Ears: hearing grossly normal bilaterally Nose: external nose normal Face and sinus: normal facial exam Mouth: oral mucosae normal Throat: posterior oropharynx normal Eyes General: appearance normal, both eyes and all related structures Neck Neck: normal visual inspection Chest Chest palpation & inspection: normal inspection of the chest and normal palpation of entire chest wall Resp Effort & Inspection: normal respiratory effort Auscultation: Bilateral: Clear to Auscultation Cardio Palpation: normal PMI Rate: regular rate Rhythm: regular rhythm GI Inspection: normal to inspection Auscultation: normal bowel sounds Percussion: normal to percussion Palpation: no hepatosplenomegaly Skin General: no rashes or lesions noted Neuro General: patient alert Extrem General: normal to inspection Psych Affect: normal affect Assessment and Plan Assessment and Plan (1) Acute pancreatitis: Status: Acute Plan: 28-year-old gentleman with history of acute recurrent idiopathic pancreatitis. His triglycerides are normal. His MRCP possibly shows pancreatic divisum. There are some studies that showed a pancreatic divisum with a dilated pancreatic duct and a Lily Gilma seal can be associated with acute recurrent pancreatitis. Being that the image was not of good quality I cannot fully evaluate the pancreatic anatomy. Also with a large pseudocyst and also obstructs anatomy. Recommend repeat his MRCP in approximately 6 weeks. Check for autoimmune pancreatitis with IgG subclasses and OUMOU. Also check for celiac disease. I may also need an alcohol A1c along with other biochemical workup for diseases such as vasculitis and other diseases that may affect the pancreas and cause idiopathic pancreatitis. (2) abdominal pain and diarrhea: He will undergo an upper or lower endoscopy to evaluate his upper lower GI tract. He does have some markers positive for Crohn's disease. 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 He was explained alternatives, risk and benefits including not withstanding bleeding, infection, sepsis, perforation, need for emergent surgery .-ASA of 3.
--- NOTE | 2023-12-21 10:15 | COLBX_PTH ---
PATIENT: VIKASH PATEL LOC: EN U#:[id number] AGE/SX: 28/M ROOM: RE12/21/[address]: Dr. Denton Barajas DO : 1995 BED: DIS: 12/21/2023 SPEC #: [id number] RECD: 12/21/23 13:43 STATUS: KEI RECiarra #: [id number] DEB: 12/21/23 10:[address]: Denton Barajas DEPT: SURGICAL PATHOLOGY RECD BY: John Isbell ENTERED: 12/21/23 14:23 SP TYPE: COLON BX OTHR DR: No Primary Care Phys Tissues: A - Duodenum, NOS B - Ileum, NOS C - Cecum, NOS D - COLON BIOPSY E - Rectum, NOS Procedures: Surgery Specimen Level IV HEADER OPERATION: Colonoscopy with biopsy, EGD with biopsy PRE-OP DIAGNOSIS: Acute pancreatitis, abdominal pain, diarrhea TISSUE SUBMITTED: A- Duodenal biopsy, B- Terminal ileum biopsy, C- Cecal biopsy, D- Random colon, E- Rectal biopsy MICROSCOPIC DIAGNOSIS A. Duodenal biopsy: Fragments of duodenal mucosa, no pathologic diagnosis. B. Terminal ileum, biopsy: Fragments of small intestinal mucosa, no pathologic diagnosis. See comment. C. Cecal biopsy: A fragment of colonic mucosa, no pathologic diagnosis. D. Colon, random biopsy: Fragments of colonic mucosa, no pathologic diagnosis. E. Rectal biopsy: Fragments of colonic mucosa, no pathologic diagnosis. MUKUND/mr 12/22/2023 COMMENT B. Prominent lymphoid aggregates are noted. MICROSCOPIC DESCRIPTION Slides are reviewed. GROSS DESCRIPTION A. Received in fixative is one container labeled with the patient's name and designated Duodenal biopsy. The specimen consists of multiple irregular fragments of light merlos soft tissue that in aggregate measure 1.0 x 0.3 x 0.1 cm. The specimen is totally submitted in one cassette. B. Received in fixative is one container labeled with the patient's name and designated Terminal ileum biopsy. The specimen consists of multiple irregular fragments of light merlos soft tissue that in aggregate measure 1.2 x 0.3 x 0.1 cm. The specimen is totally submitted in one cassette. C. Received in fixative is one container labeled with the patient's name and designated Cecal biopsy. The specimen consists of one irregular fragment of light merlos soft tissue that measures 0.3 x 0.3 x 0.1 cm. The specimen is totally submitted in one cassette. D. Received in fixative is one container labeled with the patient's name and designated Random colon biopsy. The specimen consists of multiple irregular fragments of light merlos soft tissue that in aggregate measure 1.5 x 1.0 x 0.1 cm. The specimen is totally submitted in one cassette. E. Received in fixative is one container labeled with the patient's name and designated Rectal biopsy. The specimen consists of multiple irregular fragments of light merlos soft tissue that in aggregate measure 0.5 x 0.5 x 0.1 cm. The specimen is totally submitted in one cassette. SJ.mr 12/21/2023 TC:4 CPT:24149l8
--- NOTE | 2023-12-21 10:42 | OP.EGD_ITS ---
Patient Name: Julien Guy Procedure Date: 12/21/2023 10:10 AM Date of : 1995 Age: 28 Procedure: Upper GI endoscopy Indications: Epigastric abdominal pain, Abnormal CT of the GI tract Providers: Denton Barajas DO Medicines: Monitored Anesthesia Care Patient Profile: This is a 28 year old male. Refer to note in patient chart for documentation of history and physical. Patient has symptoms of acute abdominal cramping, acute abdominal distention, acute epigastric abdominal pain, acute global abdominal pain and acute nausea. Complications: No immediate complications. Procedure: Pre-Anesthesia Assessment: - Prior to the procedure, a History and Physical was performed, and patient medications and allergies were reviewed. The patient is competent. The risks and benefits of the procedure and the sedation options and risks were discussed with the patient. All questions were answered and informed consent was obtained. Patient identification and proposed procedure were verified by the physician in the pre-procedure area. Mental Status Examination: alert and oriented. Airway Examination: normal oropharyngeal airway and neck mobility. Respiratory Examination: clear to auscultation. CV Examination: normal. Prophylactic Antibiotics: The patient does not require prophylactic antibiotics. Prior Anticoagulants: The patient has taken no anticoagulant or antiplatelet agents except for NSAID medication. ASA Grade Assessment: II - A patient with mild systemic disease. After reviewing the risks and benefits, the patient was deemed in satisfactory condition to undergo the procedure. The anesthesia plan was to use monitored anesthesia care (MAC). Immediately prior to administration of medications, the patient was re-assessed for adequacy to receive sedatives. The heart rate, respiratory rate, oxygen saturations, blood pressure, adequacy of pulmonary ventilation, and response to care were monitored throughout the procedure. The physical status of the patient was re-assessed after the procedure. After obtaining informed consent, the endoscope was passed under direct vision. Throughout the procedure, the patient's blood pressure, pulse, and oxygen saturations were monitored continuously. The Colonoscope was introduced through the mouth, and advanced to the second part of duodenum. The upper GI endoscopy was accomplished without difficulty. The patient tolerated the procedure well. Scope In: 10:23:50 AM Scope Out: 10:25:58 AM Total Procedure Duration Time 0 hours 2 minutes 8 seconds Findings: The examined esophagus was normal. Patchy mildly erythematous mucosa without bleeding was found in the gastric antrum. Biopsies were taken with a cold forceps for histology. Verification of patient identification for the specimen was done. Estimated blood loss was minimal. Biopsies were taken with a cold forceps for Helicobacter pylori testing. Verification of patient identification for the specimen was done. Estimated blood loss was minimal. Localized mild inflammation characterized by congestion (edema) and erythema was found in the duodenal bulb. Biopsies were taken with a cold forceps for histology. Verification of patient identification for the specimen was done. Estimated blood loss was minimal. Impression: - Normal esophagus. - Erythematous mucosa in the antrum. Biopsied. - Duodenitis. Biopsied. Recommendation: - Discharge patient to home. - Resume previous diet. - Continue present medications. - Await pathology results. Procedure Code(s): --- Professional --- 25558, Esophagogastroduodenoscopy, flexible, transoral; with biopsy, single or multiple CPT copyright 2021 [employer]. All rights reserved. The codes documented in this report are preliminary and upon inpatient coder review may be revised to meet current compliance requirements. Denton Barajas DO 12/21/2023 10:42:08 AM This report has been signed electronically. Number of Addenda: 0 Note Initiated On: 12/21/2023 10:10 AM
--- NOTE | 2023-12-21 10:42 | OP.CCLET_ITS ---
12/21/2023 No Primary Care Physician Re : Upper GI endoscopy procedure for Julien Guy Dear Care Physician This procedure was performed on Thursday, December 21, 2023. My impressions and recommendations are as follows: Impressions : - Normal esophagus. - Erythematous mucosa in the antrum. Biopsied. - Duodenitis. Biopsied. Recommendations : - Discharge patient to home. - Resume previous diet. - Continue present medications. - Await pathology results. My findings are described in the full procedure note, which is enclosed. If I can be of further assistance, please feel free to contact me at . Sincerely, Denton Barajas, 12/21/2023 10:42:08 AM This report has been signed electronically.
--- NOTE | 2023-12-21 10:45 | OP.COLON_ITS ---
Patient Name: Julien Guy Procedure Date: 12/21/2023 10:26 AM Date of : 1995 Age: 28 Procedure: Colonoscopy Indications: Suspected Crohn's disease of the small bowel and colon Providers: Denton Barajas DO Medicines: Monitored Anesthesia Care Patient Profile: This is a 28 year old male. Refer to note in patient chart for documentation of history and physical. Patient has symptoms of acute abdominal cramping, acute abdominal distention, acute epigastric abdominal pain, acute global abdominal pain and acute nausea. Refer to note in patient chart for documentation of history and physical. Last Colonoscopy: none. The patient's first colonoscopy is today. Complications: No immediate complications. Procedure: Pre-Anesthesia Assessment: - Prior to the procedure, a History and Physical was performed, and patient medications and allergies were reviewed. The patient is competent. The risks and benefits of the procedure and the sedation options and risks were discussed with the patient. All questions were answered and informed consent was obtained. Patient identification and proposed procedure were verified by the physician in the pre-procedure area. Mental Status Examination: alert and oriented. Airway Examination: normal oropharyngeal airway and neck mobility. Respiratory Examination: clear to auscultation. CV Examination: normal. Prophylactic Antibiotics: The patient does not require prophylactic antibiotics. Prior Anticoagulants: The patient has taken no anticoagulant or antiplatelet agents except for NSAID medication. ASA Grade Assessment: II - A patient with mild systemic disease. After reviewing the risks and benefits, the patient was deemed in satisfactory condition to undergo the procedure. The anesthesia plan was to use monitored anesthesia care (MAC). Immediately prior to administration of medications, the patient was re-assessed for adequacy to receive sedatives. The heart rate, respiratory rate, oxygen saturations, blood pressure, adequacy of pulmonary ventilation, and response to care were monitored throughout the procedure. The physical status of the patient was re-assessed after the procedure. After I obtained informed consent, the scope was passed under direct vision. Throughout the procedure, the patient's blood pressure, pulse, and oxygen saturations were monitored continuously. The Colonoscope was introduced through the anus and advanced to the terminal ileum. The colonoscopy was performed without difficulty. The patient tolerated the procedure well. The quality of the bowel preparation was adequate. The terminal ileum, ileocecal valve, appendiceal orifice, and rectum were photographed. Scope In: 10:27:31 AM Scope Withdrawal Time 0 hours 8 minutes 18 seconds Scope Out: 10:38:43 AM Total Procedure Duration Time 0 hours 11 minutes 12 seconds Findings: The perianal and digital rectal examinations were normal. Localized mild inflammation characterized by erythema, friability and linear erosions was found in the rectum. Biopsies were taken with a cold forceps for histology. Verification of patient identification for the specimen was done. Estimated blood loss was minimal. An area of mildly congested mucosa was found in the descending colon, at the splenic flexure, in the transverse colon and in the ascending colon. Biopsies were taken with a cold forceps for histology. Verification of patient identification for the specimen was done. Estimated blood loss was minimal. A patchy area of the terminal ileum was congested. Biopsies were taken with a cold forceps for histology. Verification of patient identification for the specimen was done. Estimated blood loss was minimal. Impression: - Localized mild inflammation was found in the rectum secondary to colitis. Biopsied. - Congested mucosa in the descending colon, at the splenic flexure, in the transverse colon and in the ascending colon. Biopsied. - Congested mucosa in the terminal ileum. Biopsied. Recommendation: - Discharge patient to home. - Resume previous diet. - Continue present medications. - Await pathology results. - Repeat colonoscopy in 5 years for surveillance. Procedure Code(s): --- Professional --- 02381, Colonoscopy, flexible; with biopsy, single or multiple CPT copyright 2021 [employer]. All rights reserved. The codes documented in this report are preliminary and upon inductor tester review may be revised to meet current compliance requirements. Denton Barajas DO 12/21/2023 10:45:24 AM This report has been signed electronically. Number of Addenda: 0 Note Initiated On: 12/21/2023 10:26 AM
--- NOTE | 2023-12-21 10:46 | OP.CCLET_ITS ---
12/21/2023 No Primary Care Physician Re : Colonoscopy procedure for Julien Guy Dear Care Physician This procedure was performed on Thursday, December 21, 2023. My impressions and recommendations are as follows: Impressions : - Localized mild inflammation was found in the rectum secondary to colitis. Biopsied. - Congested mucosa in the descending colon, at the splenic flexure, in the transverse colon and in the ascending colon. Biopsied. - Congested mucosa in the terminal ileum. Biopsied. Recommendations : - Discharge patient to home. - Resume previous diet. - Continue present medications. - Await pathology results. - Repeat colonoscopy in 5 years for surveillance. My findings are described in the full procedure note, which is enclosed. If I can be of further assistance, please feel free to contact me at . Sincerely, Denton Barajas, 12/21/2023 10:45:24 AM This report has been signed electronically.
--- NOTE | 2023-12-21 10:48 | PCM.POST.ANE ---
Anesthesia: Postop Eval I Current Vital Signs Temperature: 97.2 F Pulse Rate: 67 Blood Pressure: 101/52 Respiratory Rate: 16 Pulse Ox: 98 Oxygen Delivery Method: Room Air Assessment Airway patent: Yes Spontaneous unlabored respirations: Yes Mental status: Asleep nausea: No Vomiting: No Anesthesia Complication: No Fluid Hydration Crystalloid volume administer (ml): 800 Total IV fluid infused: 800 Progress Note Anesthesia document: Postop Eval 1 completed: Yes
== END 2023-12-21 11:20 | disposition home or self-care (01) ==
LOC: EN 09:17 → AC 09:29
PROVIDERS: Visit Provider Internal Medicine Gastroenterology
PROC: 0DJD8ZZ Inspection of Lower Intestinal Tract, Via Natural or Artificial Opening Endoscopic (ICD-10-PCS; CPT 45378; principal; 2023-12-21 10:10)
DX: K29.80 Duodenitis without bleeding (principal); K52.9 Noninfective gastroenteritis and colitis, unspecified; K85.00 Idiopathic acute pancreatitis without necrosis or infection; Z90.49 Acquired absence of other specified parts of digestive tract
CPT/HCPCS: 45380; 43239; 88305; J7120; J2405

== ENCOUNTER → 2023-12-23 | Outpatient (CLI) | payer OTHER, SELFPAY ==
--- NOTE | 2023-12-23 10:19 | MRI_ITS ---
MRCP without contrast 12/23/2023 10:35 AM COMPARISON: 10/12/2023 CLINICAL HISTORY: Pancreatitis, PREVIOUS CT AND MRCP, ABDOMEN PAIN, GALLBLADDER REMOVED TECHNIQUE: Multiplanar and multisequence MR images of the abdomen were obtained with MRCP sequence. Three-dimensional post-processing reconstructions were performed. FINDINGS: Liver: Unremarkable Gallbladder: Surgically absent. Bile Ducts: Unremarkable Pancreas: Redemonstration of peripancreatic edema suggestive of acute pancreatitis. There are multiple thick-walled fluid collections, similar in appearance since prior including a 9 x 8.4 cm collection and a 4 x 2.7 cm collection in the body and tail of the pancreas, respectively. Spleen: Unremarkable Adrenal Glands: Unremarkable Kidneys: Unremarkable GI Tract: Unremarkable Lymphadenopathy: Absent Ascites: Absent Bones: No suspicious lesions MRI/MRCP Abdomen without Contrast IMPRESSION: Acute on chronic pancreatitis with multiple pseudocysts as described above. Electronically Signed: Glenroy Hall MD at 18:01 EDT ,
== END | disposition home or self-care (01) ==
LOC: MRI 10:14
PROVIDERS: Referring Provider Internal Medicine Gastroenterology; Visit Provider Internal Medicine Gastroenterology
DX: K85.90 Acute pancreatitis without necrosis or infection, unspecified (principal)
CPT/HCPCS: 74181

== ENCOUNTER 2024-05-06 16:05 | Emergency (ER) | payer OTHER, SELFPAY ==
[2024-05-06] VITALS (28 sets, daily range): BP systolic 77–121; BP diastolic 51–76; PULSE 91–160; RESP 14–27; TEMP 36.1–37.1; O2SAT 96–100; BMI 22.1
--- NOTE | 2024-05-06 16:40 | EKG12_ITS ---
Test Reason : SYNCOPE Blood Pressure : */* mmHG Vent. Rate : 125 BPM Atrial Rate : 125 BPM P-R Int : 124 ms QRS Dur : 82 ms QT Int : 312 ms P-R-T Axes : 62 55 57 degrees QTcB Int : 450 ms Sinus tachycardia Otherwise normal ECG Confirmed by RUPINDER HAYES, VIOLA ([id number]), industrial editor THERESE SILVERMAN ([id number]) on 05/07/2024 10:59:17 A M Referred By: Confirmed By: VIOLA BUCIO MD
--- NOTE | 2024-05-06 16:40 | EX.ED.DYSGE1 ---
HPI History of Present Illness Chief Complaint: Syncope Informant: patient, spouse/S.O. and EMS Narrative Narrative: Significant other called EMS because of a syncopal episode. Patient states this occurred just after standing up, which he did just after vomiting several times, the last 2 episodes of vomiting included bright red blood in relatively small amounts, and the vomiting occurred just after eating his first meal of the day. He was discharged from [facility] yesterday, 1 week ago he had 2 abdominal surgeries which included a resection of some small bowel, his pancreas, part of the stomach, his spleen, and an islet cell transplantation. 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 Not a diabetic prior to the procedure, but afterwards he is needing small amounts of insulin with meals, and he had a partial gastrectomy so he has been told to eat small portions which he states he did today. The spouse checked his blood sugar just prior to the meal, and according to their instructions he was given 1 unit of insulin with a meal, and then after he started having the vomiting she checked it again and it was just over 200 and she was supposed to give him another unit but did not, instead EMS was called after he passed out, they checked it was 201 and did not give him any more of any medication including insulin. He states the pain in his abdomen is the same that he has been having postoperative and no different, it is upper more to the right, and he has more nausea right now than he does pain. He had recent several units of blood transfused. His last bowel movement was about noon today, he has had some constipation due to taking oxycodone, he is taking stool softeners with that, and he denies having any melena or blood in stools. [facility] Medical History (Updated 05/06/24 @ 18:[address] Kevin Padilla MD) PRSS1-related hereditary pancreatitis, autosomal dominant Alcohol use Dietary restriction Abdominal pain Non-smoker Acute pancreatitis Home Medications ?Medication ?Instructions ?Recorded ?Last Taken ?Type oxycodone-acetaminophen 5 mg-325 1 tab PO Q6H PRN pain 3 days #12 12/13/23 Unknown Rx mg tablet (Endocet) tabs [id number] 2 cap PO QAC #600 caps 03/02/24 Unknown Rx 36,000-114,000-180,000 unit capsule,delay rel (Creon) blood sugar diagnostic (OneTouch 05/06/24 Unknown History Verio test strips) glucagon 3 mg/actuation nasal mg intranasal 05/06/24 Unknown History spray (Baqsimi) insulin glargine 100 unit/mL (3 unit subcut 05/06/24 Unknown History mL) subcutaneous pen (Lantus Solostar U-100 Insulin) metoclopramide HCl 5 mg tablet 5 mg PO 3XD 05/06/24 Unknown History pantoprazole 40 mg tablet,delayed 40 mg PO DAILY 05/06/24 Unknown History release Allergy/AdvReac Type Severity Reaction Status Date / Time No Known Allergies Allergy Verified 12/21/23 09:24 Surgical History H/O splenectomy History of pancreatectomy History of cholecystectomy Social History Smoking Status: Never smoker ROS ROS ED Constitutional Constitutional ED: Denies chills or fever(s) Eyes Eyes: Denies change in vision or diplopia ENT ENT ED: Denies rhinorrhea or sore throat Cardiovascular Cardiovascular: Reports lightheadedness and syncope; Denies chest pain or palpitations Respiratory/Chest Respiratory/Chest: Denies cough or dyspnea Gastrointestinal Gastrointestinal: Reports abdominal pain, constipation, hematemesis, nausea and vomiting; Denies diarrhea or melena Genitourinary Genitourinary ED: Denies dysuria or hematuria Musculoskeletal Musculoskeletal: Denies back pain or neck pain Integumentary Denies abscess or rash Neurologic Neurologic: Denies headache(s), paresthesias or weakness Psychiatric Psychiatric: Denies anxiety or suicidal thoughts EXAM Physical Exam Const Vital Signs: 05/06/24 16:06 05/06/24 16:12 05/06/24 16:18 Temperature 98.2 F 98.2 F Temperature Source Oral Oral Pulse Rate 110 H 110 H Respiratory Rate 18 15 Respiratory Effort Normal Non-Labored Respiratory Pattern Normal Blood Pressure 116/70 116/70 Blood Pressure Mean 85 85 Pulse Ox 99 100 Oxygen Delivery Method Room Air Room Air 05/06/24 17:06 05/06/24 17:12 05/06/24 17:15 Temperature 98 F Temperature Source Oral Pulse Rate 110 H 96 Respiratory Rate 27 H 16 Respiratory Effort Respiratory Pattern Blood Pressure 109/63 112/63 100/51 L Blood Pressure Mean 78 79 65 Pulse Ox 98 99 Oxygen Delivery Method Room Air Room Air 05/06/24 17:20 05/06/24 17:21 05/06/24 17:30 Temperature Temperature Source Pulse Rate 114 H 100 105 H Respiratory Rate 26 H 14 21 H Respiratory Effort Respiratory Pattern Blood Pressure 112/63 118/70 Blood Pressure Mean 79 82 Pulse Ox 98 99 96 Oxygen Delivery Method 05/06/24 17:45 05/06/24 18:00 05/06/24 18:07 Temperature 98.4 F Temperature Source Oral Pulse Rate 138 H 137 H Respiratory Rate 20 H 14 Respiratory Effort Respiratory Pattern Blood Pressure 112/72 110/72 110/72 Blood Pressure Mean 84 84 84 Pulse Ox 98 99 Oxygen Delivery Method Room Air 05/06/24 18:15 Temperature Temperature Source Pulse Rate 142 H Respiratory Rate 21 H Respiratory Effort Respiratory Pattern Blood Pressure 99/69 Blood Pressure Mean 78 Pulse Ox 98 Oxygen Delivery Method Positive well nourished and well developed Constitutional Narrative: Appears nauseated but no distress General Appearance ED: well developed and NAD HEENT Reports moist mucous membranes normocephalic and atraumatic Eyes PERRL and EOMs intact bilaterally Neck full ROM and supple Resp normal respiratory effort and clear to auscultation bilaterally Effort and Inspection: able to speak in complete sentences Cardio regular rate, regular rhythm and no murmurs Rate: tachycardic GI non-distended GI Narrative: Tender right upper quadrant and epigastrium. No guarding or rebound. Midline surgical incision clean, dry, intact no dehiscence or signs of infection. Auscultation: hypoactive bowel sounds Palpation: soft Back/Spine no CVA tenderness General Back: other FROM Extremity normal to inspection General Extremety ED: Negative for edema, pulses abnormal or tenderness General Extremity: Negative for edema or pulses abnormal Neuro oriented x3, CN's II-XII intact bilaterally and no sensory deficits noted Sensorium / Orientation: awake and alert Motor Exam: strength 5/5 throughout Psych mental status grossly normal Skin no rashes or lesions noted and no wounds MDM MDM MDM Narrative Medical decision making narrative: Just after evaluating patient and ordering IV fluids, Zofran, and a workup including abdominal imaging with oral contrast to evaluate for the possibility of a leak, patient vomited about 300 cc of gross blood. Therefore the CT was changed to IV only contrasted scan, and I added a type and screen as well as IV pantoprazole, he took an oral pantoprazole this morning. I reviewed the CT images, I do not see signs of any acute rupture. Labs are noted. Hemoglobin is 8.8. However he has continued to vomit blood 2 or 3 more other times, total of 5-700 cc. Another liter of fluid was started and he was typed and crossed for 1 unit, before finishing the second liter and getting blood started, his blood pressure is 99/69 with a pulse of 142, consistent with early hemorrhagic shock. We do not have anyone for GI available at this hospital today. I initiated transfer to [facility] prior to obtaining most of this information. There were delays. I spoke with surgery Dr. Patino as well as the ED physician Dr. Lay, both of which are comfortable excepting the patient to the ED there for urgent/emergent GI consultation and hepatobiliary and admission. After these conversations the report for the CT was obtained and I reviewed it and agree with it. I am having this sent to the [facility] servers. Attempted to obtain transport from ED to ED via helicopter given all of this, however due to weather they are not flying. If we start blood transfusion, ALS can take him, and I think speed of transport at this point is the most important factor. Therefore regardless if it is ALS or MICU, I think whoever can take him first is the most appropriate mode since we are limited ground transport. Lab Data Attestation: I reviewed the patient's lab results. Labs: Laboratory Results - last 24 hr 05/06/24 05/06/24 05/06/24 16:14 16:51 16:55 WBC 12.4 H RBC 3.20 L Hgb 8.8 L Hct 27.5 L MCV 85.9 MCH 27.5 MCHC 32.0 RDW Std Deviation 45.8 H RDW Coeff of [place] 15.2 H Plt Count TNP MPV 11.8 Immature Gran % (Auto) 0.700 Neut % (Auto) 81.1 H Lymph % (Auto) 6.8 L [place] % (Auto) 10.6 H Eos % (Auto) 0.6 Baso % (Auto) 0.2 Absolute Neuts (auto) 10.0 H Absolute Lymphs (auto) 0.84 Nucleated RBC % 0 Platelet Estimate ADEQUATE RBC Morphology NORM C+C Anisocytosis RARE Sodium 137 Potassium 3.8 Chloride 101 Carbon Dioxide 28.0 Anion Gap 8 BUN 10 Creatinine 0.66 L Estim Creat Clear Calc 168.18 Est GFR (MDRD) Af Amer 184 Est GFR (MDRD) Non-Af 152 BUN/Creatinine Ratio 15.2 Glucose 185 H Calcium 8.4 L Total Bilirubin 0.70 AST 39 H ALT 66 H Alkaline Phosphatase 77 Total Protein 6.0 L Albumin 3.0 L Globulin 3.0 Albumin/Globulin Ratio 1.0 Lipase < 10 L POC Glucose 166 H Blood Type A POSITIVE Antibody Screen NEGATIVE Crossmatch See Detail 05/06/24 18:06 WBC RBC Hgb Hct MCV MCH MCHC RDW Std Deviation RDW Coeff of [place] Plt Count MPV Immature Gran % (Auto) Neut % (Auto) Lymph % (Auto) [place] % (Auto) Eos % (Auto) Baso % (Auto) Absolute Neuts (auto) Absolute Lymphs (auto) Nucleated RBC % Platelet Estimate RBC Morphology Anisocytosis Sodium Potassium Chloride Carbon Dioxide Anion Gap BUN Creatinine Estim Creat Clear Calc Est GFR (MDRD) Af Amer Est GFR (MDRD) Non-Af BUN/Creatinine Ratio Glucose Calcium Total Bilirubin AST ALT Alkaline Phosphatase Total Protein Albumin Globulin Albumin/Globulin Ratio Lipase POC Glucose 184 H Blood Type Antibody Screen Crossmatch Radiography Diagnostic Testing: Clinical Impression(s) from Imaging Studies Abdomen/Pelvis CT 05/06/24 16:43 IMPRESSION: (NOT LISTED IN ORDER OF SIGNIFICANCE) Evidence for recent pancreatic surgery. There is free fluid in the abdomen or pelvis. No drainable abscess. There is free air suggesting recent surgery. There are bilateral pleural effusions. Other findings as above. Electronically Signed: Quan Choi MD at 18:21 EST , Rhythm Strip Rhythm Strip: Sinus Tach Rate: 125 Ectopy: None EKG Initial EKG: Attestation: I personally reviewed and interpreted this EKG as follows: Interpretation: No Acute Injury Pattern and Sinus Tachycardia (125) Management Discussion w/another healthcare provider: Mechanic Welder ([facility] surgery, EM) Critical Care Time Critical Care Time: Yes Critical care time (excluding procedures): 30-74 minutes (42 min), Including time spent:, Discussing w/Patient &/or Family/Graphics Artist, Discussing w/Consultants (extended phone conversation w/ several providers), Arranging Admission or Transfer and Performing Direct Patient Care at Bedside Discharge Plan Triage Chief Complaint: Syncope ED Provider: Kevin Padilla Dx/Rx/DC Orders Clinical Impression: Acute upper gastrointestinal bleeding, Acute blood loss anemia (ABLA), Orthostatic syncope Prescriptions: No Action Creon 36,000-114,000- 180,000 unit capsule,delayed release(DR/EC) 2 cap PO QAC Qty: 600 3RF Rx Instructions: administer with meals and/or snacks oxycodone-acetaminophen [Endocet] 5-325 mg tablet 1 tab PO Q6H PRN (Reason: pain) 3 Days Qty: 12 0RF (DME) OneTouch Verio test strips Strip MISCELLANEOUS Patient Comments: [NO ORIGINAL SIG] metoclopramide HCl 5 mg tablet 5 mg PO 3XD insulin glargine [Lantus Solostar U-100 Insulin] 100 unit/mL (3 mL) insulin pen subcut Baqsimi 3 mg/actuation spray,non-aerosol INTRANASAL Patient Comments: [NO ORIGINAL SIG] pantoprazole 40 mg tablet,delayed release (DR/EC) 40 mg PO DAILY Primary Care Provider: Care Physician,No Primary Referrals: Care Physician,No Primary [Primary Care Provider] - Print Language: Citizen Of [place] Disposition Disposition: Acute Care Hospital Discharge Location: [facility]
--- NOTE | 2024-05-06 16:43 | CT_ITS ---
STUDY: CT Abdomen And Pelvis W/ Contrast Injection 05/06/2024 6:11 PM REASON FOR EXAM: Male, 28 years old. n/v w/ hematemesis, recent whipple TECHNIQUE: Transaxial images were obtained without oral contrast, and IV 100mL Isovue-370 intravenous contrast. Individualized dose optimization techniques were used for this CT. COMPARISON: 12.09.26 FINDINGS: Small bilateral pleural effusions. The visualized portions of the heart are within normal limits. Unremarkable liver. There is non-visualization of the gallbladder, which may be secondary to either contraction or a prior cholecystectomy. Surgical absence of the spleen. There is evidence for a pancreatic duodenectomy. Unremarkable bilateral adrenal glands. No acute findings of the right kidney. No acute findings of the left kidney. Unremarkable visualized stomach. Unremarkable small intestine. Unremarkable colon. There is non-visualization of the appendix. Minimal intraluminal air suggesting recent surgery. Free fluid around the liver. There are no acute findings of the abdominal aorta. Unremarkable inferior vena cava. Subcentimeter mesenteric lymph nodes. Unremarkable urinary bladder. There are prostatic calcifications. Unremarkable abdominal wall. Unremarkable osseous structures. CT/Abdomen/Pelvis W IV Cont ONLY IMPRESSION: (NOT LISTED IN ORDER OF SIGNIFICANCE) Evidence for recent pancreatic surgery. There is free fluid in the abdomen or pelvis. No drainable abscess. There is free air suggesting recent surgery. There are bilateral pleural effusions. Other findings as above. Electronically Signed: Quan Choi MD at 18:21 EST ,
[2024-05-06] MEDS: 0.9% Normal Saline (1000mL) 1,000 ML 999 ML IV ×3 (16:47→19:25)
[2024-05-06] MEDS: Ondansetron 4 MG/2 ML Vial IV ×2 (16:48→20:19)
--- NOTE | 2024-05-06 16:49 | ED.RN ---
Pt just vomited 300 cc of blood, Dr Padilla aware
[2024-05-06 16:56] LABS: Absolute Lymphocyte Count 0.84 X10^3/uL (0.83-4.51); Basophil# 0.03 X10^3/uL; Basophil% 0.2 % (0-1); Eosinophil# 0.07 X10^3/uL; Eosinophils% 0.6 % (0-5); Hematocrit 27.5 % (40-54); Hemoglobin 8.8 g/dL (13.0-16.5); Lymphocyte # 0.84 X10^3/ul (0.83-4.51); Lymphocyte % 6.8 % (19-41); Mean Corpuscular Hgb 27.5 pg (27.0-32.0); Mean Corpuscular Volume 85.9 fL (80-94); Mean Platelet Vol. 11.8 fl (6.2-12.0); Monocyte# 1.31 X10^3/uL; Monocyte% 10.6 % (0-10); NRBC Flagged by Analyzer 0 % (0-5); Neutrophil # 10.01 X10^3/uL (2.7-7.7); Neutrophil % 81.1 % (47-70); POSITIVE COUNT YES; RBC Distribution Width CV 15.2 % (11.6-14.6); RBC Distribution Width SD 45.8 fl (35.1-43.9); White Blood Count 12.4 K/mm3 (4.4-11.0)
[2024-05-06] MEDS: Pantoprazole Sodium 40 MG in 0.9% Normal Saline (100mL MB+) 100 ML 330 MG IV (16:58)
--- NOTE | 2024-05-06 17:05 | ED.RN ---
Dr. Padilla notified that pt. had another 300CC of bloody emesis
--- NOTE | 2024-05-06 17:10 | ED.RN ---
dr ng confirmed that Ct does not need to wait for blood work to come back before he gets scanned
[2024-05-06 17:18] LABS: Bedside Glucose 166 mg/dL (74-106)
[2024-05-06 17:28] LABS: Differential Indicated SCAN CRITERIA MET
[2024-05-06 17:29] LABS: Anisocytosis RARE; Platelet Estimate ADEQUATE (ADEQ); Red Cell Morphology NORM C+C NORMAL (NORM C&C)
[2024-05-06 17:33] LABS: AST(SGOT) 39 U/L (15-37); Alanine Aminotransfer ALT/SGPT 66 U/L (16-61); Alkaline Phosphatase 77 U/L (45-117); Anion Gap 8 (5-15); BUN 10 mg/dL (7-18); BUN/Creat Ratio 15.2 RATIO (10-20); Calcium,Total 8.4 mg/dL (8.5-10.1); Chloride 101 mmol/L (98-107); Creatinine, Serum 0.66 mg/dL (0.70-1.30); EST Glomerular Filtration Rate 152 mL/min (>60); Est Glom Filt Rate - Afr Amer 184 mL/min (>60); Estimated Creatinine Clearance 168.18 ml/min; Glucose 185 mg/dL (74-106); Lipase < 10 U/L (13-75); Potassium 3.8 mmol/L (3.5-5.1); Sodium Level 137 mmol/L (136-145)
--- NOTE | 2024-05-06 17:46 | ED.RN ---
CALLED [facility] @ [id number] WAITING FOR CALL BACK.
--- NOTE | 2024-05-06 18:08 | ED.RN ---
Pt had another emesis of blood, 200cc output. Dr Padilla aware
[2024-05-06 18:35] LABS: Bedside Glucose 184 mg/dL (74-106)
--- NOTE | 2024-05-06 18:46 | ED.RN ---
215 cc of bloody emesis, MD aware.
--- NOTE | 2024-05-06 18:51 | ED.RN ---
pt accepted at [facility] ed 1840. This church secretary called [employer] at 1845 spoke with Christina, gave her pt info and and she paged out. Trip was declined due to weather, and unable to access an appropriate ground squad to our area as well. This church secretary then called [employer] [facility] [employer] transport and spoke with Matthew and he arranged ride for picker and packer for 2029.
--- NOTE | 2024-05-06 19:18 | ED.RN ---
This RN asked Dr Padilla to assess pt. Pt is pale, diaphoretic, bp 77/55. Pt tachy at 160. Blood is now being bolused and 2 L NS are being bolused. 2L o2 applied NC
--- NOTE | 2024-05-06 19:21 | ED.RN ---
Pt is in trendelenburg, 2L nasal cannula applied for comfort. Heart rate now 108. 92/60 BP.
[2024-05-06 19:25] LABS: Bedside Glucose 192 mg/dL (74-106)
--- NOTE | 2024-05-06 19:33 | ED.RN ---
300 cc bloody emesis. aware
--- NOTE | 2024-05-06 20:22 | ED.RN ---
450 ml bright red emesis
[2024-05-06] MEDS: NORMAL SALINE 0.9% IV (20:33)
[2024-05-06] MEDS: OCTREOTIDE IV (20:33)
--- NOTE | 2024-05-06 21:18 | ED.RN ---
[facility] main ED charge nurse updated on medications and third unit of blood given.
== END 2024-05-06 21:15 | disposition short-term general hospital (02) ==
PROVIDERS: Emergency Provider Emergency Medicine; Visit Provider Emergency Medicine
DX: K92.0 Hematemesis (principal); Z79.4 Long term (current) use of insulin; D62 Acute posthemorrhagic anemia; I95.9 Hypotension, unspecified; K59.03 Drug induced constipation; T40.2X5A Adverse effect of other opioids, initial encounter; Z79.899 Other long term (current) drug therapy; Z90.3 Acquired absence of stomach [part of]; Z90.81 Acquired absence of spleen; Z90.410 Acquired total absence of pancreas
CPT/HCPCS: 36430; 74177; 80053; 82962; 83690; 85025; 86850; 86900; 86901; 93005; 96361; 96365; 96367; 96375; 99285; P9016; Q9967; A4216; J2354; J2405